=== PATIENT | male | born 1960 | race American Indian/Alaskan Native ===

== ENCOUNTER 2018-01-05 01:17 | Inpatient (IN) | payer MEDICARE ==
[2018-01-05 01:45] LABS: Basophils # (Auto) 0.1 K/mm3 (0.0-0.1); Basophils % (Auto) 0.7 % (0.0-1.8); Eosinophils # (Auto) 0.3 K/mm3 (0.0-0.4); Eosinophils % (Auto) 2.1 % (0.0-4.3); Hematocrit 47.5 % (35.5-45.6); Hemoglobin 16.3 gm/dl (11.8-15.2); Lymphocytes # (Auto) 2.8 K/mm3 (1.2-5.4); Lymphocytes % (Auto) 20.8 % (13.4-35.0); Mean Corpuscular HGB Conc 34 % (32-34); Mean Corpuscular Hemoglobin 30 pg (28-32); Mean Corpuscular Volume 88 fl (84-94); Monocytes % (Auto) 7.6 % (0.0-7.3); Platelet Count 233 K/mm3 (140-440); Red Blood Count 5.38 M/mm3 (3.65-5.03); Red Cell Distribution Width 13.5 % (13.2-15.2)
--- NOTE | 2018-01-05 01:45 | Cat Scan Report ---
FINAL REPORT PROCEDURE: CT HEAD/BRAIN WO CON TECHNIQUE: Computerized tomography of the head was performed without contrast material. HISTORY: ams COMPARISON: No prior studies are available for comparison. FINDINGS: Skull and scalp: Normal. Paranasal sinuses: Normal. Ventricles and subarachnoid spaces: Normal. Cerebrum: No evidence of hemorrhage, acute infarction or mass . Cerebellum and brainstem: No evidence of hemorrhage, acute infarction or mass. Vasculature: Normal. Comments: None. IMPRESSION: There is no evidence of an acute intracranial process.
[2018-01-05 02:02] LABS: Alanine Aminotransferase 14 units/L (7-56); BUN/Creatinine Ratio 5; Blood Urea Nitrogen 4 mg/dL (9-20); Calcium 8.3 mg/dL (8.4-10.2); Hemolysis Index 3
--- NOTE | 2018-01-05 02:24 | Emergency Department Report ---
ED Altered Mental Status HPI - General Chief Complaint: Altered Mental Status Stated Complaint: AMS Time Seen by Provider: 01/05/18 02:10 Source: EMS Mode of arrival: Stretcher Limitations: No Limitations - History of Present Illness Initial Comments: Wheelchair-bound patient with altered mental status says he did not offer his wheelchair earlier does have history of frequent UTIs, no focal neuro deficits, awake and verbal but confused MD Complaint: altered mental status, confusion -: Gradual, unknown Severity: mild, moderate Consistency of Symptoms: waxing and waning, getting worse Context: history of similar presen Associated Symptoms: malaise, foul smelling urine. denies: chest pain, cough, diaphoresis, headaches, loss of appetite, nausea/vomiting, rash, seizure, shortness of breath, syncope, weakness - Related Data Home Medications Medication Instructions Recorded Confirmed Last Taken Baclofen [Lioresal] 40 mg PO QHS 02/22/16 02/22/16 02/21/16 Duloxetine HCl [DULoxetine] 60 mg PO QDAY 02/22/16 02/22/16 02/21/16 Gabapentin [Neurontin] 600 mg PO Q8H 02/22/16 02/22/16 02/21/16 Nitrofurantoin [place]/M-Cryst 100 mg PO Q12HR 02/22/16 02/22/16 02/21/16 [Macrobid CAP] Oxybutynin Chloride [Oxybutynin 10 mg PO QDAY 02/22/16 02/22/16 02/21/16 Chloride ER] traMADol [Ultram] 50 mg PO Q6HR PRN 02/22/16 02/22/16 02/21/16 Allergies Allergy/AdvReac Type Severity Reaction Status Date / Time latex Allergy Unknown Verified 01/05/18 01:19 ED Review of Systems ROS: Stated complaint: AMS Other details as noted in HPI Comment: Unobtainable due to pts medical conditions Constitutional: malaise, weakness Eyes: denies: eye discharge, vision change Respiratory: denies: shortness of breath, SOB with exertion, SOB at rest, stridor Cardiovascular: denies: chest pain, palpitations, dyspnea on exertion, orthopnea , edema, syncope, paroxysmal nocturnal dyspnea Gastrointestinal: denies: diarrhea, constipation, hematemesis, melena, hematochezia Neurological: weakness ED Past Medical Hx - Past Medical History Previous Medical History?: Yes Hx Hypertension: Yes Additional medical history: has fuller catheter. cervical spine injury in 1999 - Surgical History Past Surgical History?: Yes Hx Appendectomy: Yes Additional Surgical History: neck fusion - Social History Smoking Status: Current Every Day Smoker Substance Use Type: Alcohol - Medications Home Medications: Home Medications Medication Instructions Recorded Confirmed Last Taken Type Baclofen [Lioresal] 40 mg PO QHS 02/22/16 02/22/16 02/21/16 History Duloxetine HCl [DULoxetine] 60 mg PO QDAY 02/22/16 02/22/16 02/21/16 History Gabapentin [Neurontin] 600 mg PO Q8H 02/22/16 02/22/16 02/21/16 History Nitrofurantoin [place]/M-Cryst 100 mg PO Q12HR 02/22/16 02/22/16 02/21/16 History [Macrobid CAP] Oxybutynin Chloride [Oxybutynin 10 mg PO QDAY 02/22/16 02/22/16 02/21/16 History Chloride ER] traMADol [Ultram] 50 mg PO Q6HR PRN 02/22/16 02/22/16 02/21/16 History ED Physical Exam - General Limitations: No Limitations General appearance: other (awake and verbal disoriented) - Head Head exam: Present: atraumatic, normocephalic - Eye Eye exam: Present: PERRL, EOMI - ENT ENT exam: Present: normal exam - Neck Neck exam: Absent: tenderness, meningismus - Respiratory Respiratory exam: Present: rhonchi. Absent: stridor, chest wall tenderness, accessory muscle use, decreased breath sounds, prolonged expiratory - Cardiovascular Cardiovascular Exam: Present: regular rate, normal rhythm - GI/Abdominal GI/Abdominal exam: Present: soft. Absent: guarding, rebound, rigid, mass, pulsatile mass - Extremities Exam Extremities exam: Present: other (pain to his left femur no compartment syndromeS) - Back Exam Back exam: Present: normal inspection. Absent: paraspinal tenderness, vertebral tenderness - Neurological Exam Neurological exam: Present: CN II-XII intact, reflexes normal - Skin Skin exam: Absent: cyanosis, diaphoretic, urticaria, vesicles, petechiae, pallor - Level of Consciousness 1a. Level of Consciousness: not alert, arousable - LOC Questions 1b. LOC Questions: answers 1 question correctly - LOC Command 1c. LOC Commands: performs no tasks correctly - Best Gaze 2. Best Gaze: normal - Visual 3. Visual: no visual loss - Facial Palsy 4. Facial Palsy: normal symmetrical movement - Motor Arm 5b. Motor Arm Right: no drift 5a. Motor Arm Left: no drift - Motor Leg 6a. Motor Leg Left: no drift 6b. Motor Leg Right: no drift - Limb Ataxia 7. Limb Ataxia: absent - Sensory 8. Sensory: mild/moderate sensory loss - Best Language 9. Best Language: no aphasia - Dysarthria 10. Dysarthria: mild/moderate dysarthria - Extinction and Inattention 11. Extinction/Inattention: visual/tactile inattention - Scoring Total Score: 7 Stroke Severity: Moderate Stroke ED Course Vital Signs 01/05/18 01/05/18 01/05/18 01:19 01:34 01:35 Temperature 98.1 F Pulse Rate 79 79 Respiratory 18 Rate Blood Pressure 127/78 134/86 Blood Pressure [Left] O2 Sat by Pulse 100 Oximetry 01/05/18 01/05/18 01/05/18 01:46 01:59 02:00 Temperature 99.8 F H Pulse Rate 94 H 92 H 96 H Respiratory 33 H 24 17 Rate Blood Pressure 134/86 109/64 Blood Pressure 134/86 [Left] O2 Sat by Pulse 99 97 96 Oximetry 01/05/18 01/05/18 01/05/18 02:15 02:30 02:45 Temperature Pulse Rate 97 H 96 H 96 H Respiratory 31 H 30 H 27 H Rate Blood Pressure 109/64 116/83 Blood Pressure [Left] O2 Sat by Pulse 98 99 98 Oximetry 01/05/18 01/05/18 01/05/18 03:00 03:16 03:30 Temperature Pulse Rate 97 H 98 H 97 H Respiratory 25 H 14 35 H Rate Blood Pressure 116/83 128/86 128/86 Blood Pressure [Left] O2 Sat by Pulse 99 95 98 Oximetry 01/05/18 01/05/18 01/05/18 03:46 04:00 04:15 Temperature Pulse Rate 96 H 96 H 96 H Respiratory 34 H 33 H 30 H Rate Blood Pressure 149/103 149/103 154/89 Blood Pressure [Left] O2 Sat by Pulse 97 96 95 Oximetry 01/05/18 04:30 Temperature Pulse Rate 94 H Respiratory 27 H Rate Blood Pressure 140/88 Blood Pressure [Left] O2 Sat by Pulse 95 Oximetry - Lab Data Result diagrams: 01/05/18 01:30 01/05/18 01:30 Lab Results 01/05/18 01/05/18 01/05/18 Range/Units 01:30 01:30 01:30 WBC 13.3 H (4.5-11.0) K/mm3 RBC 5.38 H (3.65-5.03) M/mm3 Hgb 16.3 H (11.8-15.2) gm/dl Hct 47.5 H (35.5-45.6) % MCV 88 (84-94) fl MCH 30 (28-32) pg MCHC 34 (32-34) % RDW 13.5 (13.2-15.2) % Plt Count 233 (140-440) K/mm3 Lymph % (Auto) 20.8 (13.4-35.0) % [place] % (Auto) 7.6 H (0.0-7.3) % Eos % (Auto) 2.1 (0.0-4.3) % Baso % (Auto) 0.7 (0.0-1.8) % Lymph # 2.8 (1.2-5.4) K/mm3 [place] # 1.0 H (0.0-0.8) K/mm3 Eos # 0.3 (0.0-0.4) K/mm3 Baso # 0.1 (0.0-0.1) K/mm3 Seg Neutrophils % 68.8 (40.0-70.0) % Seg Neutrophils # 9.2 H (1.8-7.7) K/mm3 Sodium 137 (137-145) mmol/L Potassium 3.1 L (3.6-5.0) mmol/L Chloride 96.8 L (98-107) mmol/L Carbon Dioxide 28 (22-30) mmol/L Anion Gap 15 mmol/L BUN 4 L (9-20) mg/dL Creatinine 0.8 (0.8-1.5) mg/dL Estimated GFR > 60 ml/min BUN/Creatinine Ratio 5 % Glucose 89 (75-100) mg/dL Calcium 8.3 L (8.4-10.2) mg/dL Total Bilirubin 0.50 (0.1-1.2) mg/dL AST 15 (5-40) units/L ALT 14 (7-56) units/L Alkaline Phosphatase 109 (35-129) units/L Troponin T (0.00-0.029) ng/mL Total Protein 7.4 (6.3-8.2) g/dL Albumin 3.0 L (3.9-5) g/dL Albumin/Globulin Ratio 0.7 % TSH 1.990 (0.270-4.200) mlU/mL Urine Color (Yellow) Urine Turbidity (Clear) Urine pH (5.0-7.0) Ur Specific [place] (1.003-1.030) Urine Protein (Negative) mg/dL Urine Glucose (UA) (Negative) mg/dL Urine Ketones (Negative) mg/dL Urine Blood (Negative) Urine Nitrite (Negative) Urine Bilirubin (Negative) Urine Urobilinogen (<2.0) mg/dL Ur Leukocyte Esterase (Negative) Urine WBC (Auto) (0.0-6.0) /HPF Urine RBC (Auto) (0.0-6.0) /HPF U Epithel Cells (Auto) (0-13.0) /HPF Urine Bacteria (Auto) (Negative) /HPF Urine Yeast (Budding) /HPF Urine Opiates Screen Urine Methadone Screen Ur Barbiturates Screen Ur Phencyclidine Scrn Ur Amphetamines Screen U Benzodiazepines Scrn Urine Cocaine Screen U Marijuana (THC) Screen Drugs of Abuse Note Plasma/Serum Alcohol (0-0.07) % 01/05/18 01/05/18 01/05/18 Range/Units 01:30 02:25 03:12 WBC (4.5-11.0) K/mm3 RBC (3.65-5.03) M/mm3 Hgb (11.8-15.2) gm/dl Hct (35.5-45.6) % MCV (84-94) fl MCH (28-32) pg MCHC (32-34) % RDW (13.2-15.2) % Plt Count (140-440) K/mm3 Lymph % (Auto) (13.4-35.0) % [place] % (Auto) (0.0-7.3) % Eos % (Auto) (0.0-4.3) % Baso % (Auto) (0.0-1.8) % Lymph # (1.2-5.4) K/mm3 [place] # (0.0-0.8) K/mm3 Eos # (0.0-0.4) K/mm3 Baso # (0.0-0.1) K/mm3 Seg Neutrophils % (40.0-70.0) % Seg Neutrophils # (1.8-7.7) K/mm3 Sodium (137-145) mmol/L Potassium (3.6-5.0) mmol/L Chloride (98-107) mmol/L Carbon Dioxide (22-30) mmol/L Anion Gap mmol/L BUN (9-20) mg/dL Creatinine (0.8-1.5) mg/dL Estimated GFR ml/min BUN/Creatinine Ratio % Glucose (75-100) mg/dL Calcium (8.4-10.2) mg/dL Total Bilirubin (0.1-1.2) mg/dL AST (5-40) units/L ALT (7-56) units/L Alkaline Phosphatase (35-129) units/L Troponin T < 0.010 (0.00-0.029) ng/mL Total Protein (6.3-8.2) g/dL Albumin (3.9-5) g/dL Albumin/Globulin Ratio % TSH (0.270-4.200) mlU/mL Urine Color (Yellow) Urine Turbidity (Clear) Urine pH (5.0-7.0) Ur Specific [place] (1.003-1.030) Urine Protein (Negative) mg/dL Urine Glucose (UA) (Negative) mg/dL Urine Ketones (Negative) mg/dL Urine Blood (Negative) Urine Nitrite (Negative) Urine Bilirubin (Negative) Urine Urobilinogen (<2.0) mg/dL Ur Leukocyte Esterase (Negative) Urine WBC (Auto) (0.0-6.0) /HPF Urine RBC (Auto) (0.0-6.0) /HPF U Epithel Cells (Auto) (0-13.0) /HPF Urine Bacteria (Auto) (Negative) /HPF Urine Yeast (Budding) /HPF Urine Opiates Screen Presumptive negative Urine Methadone Screen Presumptive negative Ur Barbiturates Screen Presumptive negative Ur Phencyclidine Scrn Presumptive negative Ur Amphetamines Screen Presumptive negative U Benzodiazepines Scrn Presumptive negative Urine Cocaine Screen Presumptive negative U Marijuana (THC) Screen Presumptive negative Drugs of Abuse Note Disclamer Plasma/Serum Alcohol < 0.01 (0-0.07) % // Range/Units 03:12 WBC (4.5-11.0) K/mm3 RBC (3.65-5.03) M/mm3 Hgb (11.8-15.2) gm/dl Hct (35.5-45.6) % MCV (84-94) fl MCH (28-32) pg MCHC (32-34) % RDW (13.2-15.2) % Plt Count (140-440) K/mm3 Lymph % (Auto) (13.4-35.0) % [place] % (Auto) (0.0-7.3) % Eos % (Auto) (0.0-4.3) % Baso % (Auto) (0.0-1.8) % Lymph # (1.2-5.4) K/mm3 [place] # (0.0-0.8) K/mm3 Eos # (0.0-0.4) K/mm3 Baso # (0.0-0.1) K/mm3 Seg Neutrophils % (40.0-70.0) % Seg Neutrophils # (1.8-7.7) K/mm3 Sodium (137-145) mmol/L Potassium (3.6-5.0) mmol/L Chloride (98-107) mmol/L Carbon Dioxide (22-30) mmol/L Anion Gap mmol/L BUN (9-20) mg/dL Creatinine (0.8-1.5) mg/dL Estimated GFR ml/min BUN/Creatinine Ratio % Glucose (75-100) mg/dL Calcium (8.4-10.2) mg/dL Total Bilirubin (0.1-1.2) mg/dL AST (5-40) units/L ALT (7-56) units/L Alkaline Phosphatase (35-129) units/L Troponin T (0.00-0.029) ng/mL Total Protein (6.3-8.2) g/dL Albumin (3.9-5) g/dL Albumin/Globulin Ratio % TSH (0.270-4.200) mlU/mL Urine Color Yellow (Yellow) Urine Turbidity Clear (Clear) Urine pH 6.0 (5.0-7.0) Ur Specific [place] 1.006 (1.003-1.030) Urine Protein <15 mg/dl (Negative) mg/dL Urine Glucose (UA) Neg (Negative) mg/dL Urine Ketones Neg (Negative) mg/dL Urine Blood Mod (Negative) Urine Nitrite Neg (Negative) Urine Bilirubin Neg (Negative) Urine Urobilinogen 2.0 (<2.0) mg/dL Ur Leukocyte Esterase Lg (Negative) Urine WBC (Auto) 28.0 H (0.0-6.0) /HPF Urine RBC (Auto) 46.0 (0.0-6.0) /HPF U Epithel Cells (Auto) < 1.0 (0-13.0) /HPF Urine Bacteria (Auto) 1+ (Negative) /HPF Urine Yeast (Budding) 3+ /HPF Urine Opiates Screen Urine Methadone Screen Ur Barbiturates Screen Ur Phencyclidine Scrn Ur Amphetamines Screen U Benzodiazepines Scrn Urine Cocaine Screen U Marijuana (THC) Screen Drugs of Abuse Note Plasma/Serum Alcohol (0-0.07) % - Radiology Data Radiology results: report reviewed - Medical Decision Making History of old CVA he is wheelchair bound today the symptoms are consistent with altered mental status no evidence of acute CVA on CT or clinical exam. Urine does look like an infection. He'll be cultured and given antibiotics the case was discussed with Dr. Sheets for abdomen for UTI rule out sepsis Critical care attestation.: If time is entered above; I have spent that time in minutes in the direct care of this critically ill patient, excluding procedure time. ED Disposition Clinical Impression: UTI (urinary tract infection), Altered mental status Disposition: [id number] OP ADMIT IP TO THIS HOSP Is pt being admited?: Yes Condition: Stable Referrals: NUNU SOTO MD [Primary Care Provider] - 3-5 Days Time of Disposition: 05:10
--- NOTE | 2018-01-05 02:59 | XRay Report ---
FINAL REPORT PROCEDURE: XR CHEST 1V AP TECHNIQUE: Chest radiograph anteroposterior view. CPT 35465 HISTORY: ams COMPARISON: No prior studies are available for comparison. FINDINGS: Heart: Normal. Mediastinum/Vessels: Normal. Lungs/Pleural space: Slight atelectasis both lower lungs. Bony thorax: No acute osseous abnormality. Life support devices: None. IMPRESSION: Slight atelectasis both lower lungs.
[2018-01-05 03:32] LABS: Bacteria,Urine 1+ /HPF (Negative); Bilirubin,Urine NEG (Negative); Blood,Urine MOD (Negative); Color,Urine Yellow (Yellow); Protein,Urine <15 mg/dL mg/dL (Negative)
[2018-01-05 03:34] LABS: Amphetamine Screen,Urine PRESUMPTIVE NEGATIVE; Benzodiazepines Screen,Urine PRESUMPTIVE NEGATIVE; Cannabinoid Screen,Urine PRESUMPTIVE NEGATIVE; Cocaine Screen,Urine PRESUMPTIVE NEGATIVE; Methadone Screen,Urine PRESUMPTIVE NEGATIVE; Opiate Screen,Urine PRESUMPTIVE NEGATIVE
--- NOTE | 2018-01-05 05:51 | XRay Report ---
FINAL REPORT PROCEDURE: XR FEMUR 2+V LT TECHNIQUE: LEFT femur radiographs, AP and lateral views. HISTORY: pain COMPARISON: No prior studies are available for comparison. FINDINGS: Fracture (s) and/or Dislocation(s): None . Joint space(s): Mild narrowing of the joint spaces. Soft tissues: Normal . Bone mineralization: Normal . Foreign bodies: None . IMPRESSION: No acute fracture or dislocation. Mild arthritis
[2018-01-05] MEDS ORDERED: ZOFRAN IV PRN (06:32)
[2018-01-05] MEDS ORDERED: TYLENOL PO PRN (06:32)
[2018-01-05] MEDS ORDERED: KCL 10MEQ/100ML 10 MEQ/100 ML BAG IV ONE (06:35)
[2018-01-05] MEDS ORDERED: HYOSCYAMINE 0.125 MG PO PRN (06:43)
[2018-01-05] MEDS ORDERED: DITROPAN XL PO PRN (06:43)
[2018-01-05] MEDS ORDERED: AMBIEN PO PRN (06:43)
[2018-01-05] MEDS ORDERED: ULTRAM PO PRN (06:43)
[2018-01-05] MEDS ORDERED: LIORESAL PO PRN (06:43)
[2018-01-05] MEDS ORDERED: NON-FORMULARY (Gabapentin [Neurontin] 600 MG) PO SCH (06:45)
[2018-01-05] MEDS ORDERED: KCL 10 MEQ in NACL 0.9% 100 ML IV ONE (07:15)
[2018-01-05] MEDS ORDERED: LEVSIN SL PO PRN (07:17)
[2018-01-05] MEDS: NEURONTIN PO SCH ×2 (08:00→17:00)
[2018-01-05] MEDS: ROXICODONE PO SCH ×3 (08:00→22:29)
--- NOTE | 2018-01-05 09:12 | History and Physical Report ---
CHIEF COMPLAINT: Change in mental status. HISTORY OF PRESENT ILLNESS: The patient is a 57-year-old male who was noted to be confused at home according to the . The decided to bring the patient to the Emergency Room. There was no history of chest pain, no history of shortness of breath. No history of fever or chills. The patient was evaluated and was found not to have any evidence of stroke by physical exam and CAT scan. However, the patient was found to have a urinary tract infection and was recommended for admission. PAST MEDICAL HISTORY: Pertinent for hypertension. Also, the patient has past medical history of cervical spinal injury and has Mesa catheter in place. PAST SURGICAL HISTORY: Pertinent for neck fusion surgery, appendectomy. FAMILY HISTORY: Noncontributory. SOCIAL HISTORY: The patient smokes cigarettes, drinks alcohol and does not use illicit drugs. MEDICATIONS: The patient is on baclofen 40 mg at bedtime, duloxetine 60 mg daily, gabapentin 600 mg every 8 hours, nitrofurantoin Macrobid 100 mg every 12 hours, oxybutynin chloride extended release 10 mg by mouth daily, tramadol 50 mg by mouth every 6 hours as needed for pain. ALLERGIES: THE PATIENT IS ALLERGIC TO LATEX. REVIEW OF SYSTEMS: CONSTITUTIONAL: There is no fever, no chills, no diaphoresis. HEENT: There is no headache or sore throat. CARDIOVASCULAR: There is no chest pain, orthopnea. RESPIRATORY: There is no shortness of breath or cough. GASTROINTESTINAL: There is no nausea, no vomiting, no abdominal pain, diarrhea, or constipation. NEUROLOGIC: There is confusion and change in mental status. No numbness, no dizziness. MUSCULOSKELETAL: There is no joint pain or swelling. DERMATOLOGICAL: There is no skin rash or itching. GENITOURINARY: There is no dysuria, hematuria, or flank pain. Rest of system review is normal. PHYSICAL EXAMINATION: GENERAL: At the time of exam, the patient was found to be alert, oriented to person, place, and not in acute distress. VITAL SIGNS: Shows temperature of 98.4 degrees Fahrenheit, pulse of 94, respirations 27, blood pressure 140/88, O2 sat of 95% on room air. HEENT: Show pupils to be equal, round, reactive to light and accommodation. Extraocular movements are intact. NECK: Supple with no JVD or carotid bruits. CARDIOVASCULAR: Show normal first and second heart sounds with no gallops or murmurs. RESPIRATORY: Showed good air entry on both sides of the lung with no abnormal breath sounds. GASTROINTESTINAL: Show abdomen to be full, soft, nontender with no organomegaly or rigidity. NEUROLOGIC: Shows no focal deficits. MUSCULOSKELETAL: Show no joint swelling or tenderness. DERMATOLOGIC: Showing no skin rashes. GENITOURINARY: Showing no costovertebral angle tenderness. PERTINENT LABORATORY AND IMAGING STUDIES: The patient has CBC done with elevated white count of 13,300, elevated hemoglobin of 15.3 and elevated hematocrit of 47.5 and normal MCV. CBC differential was unremarkable except for elevated ____. Chemistry shows low potassium level of 3.1 with low chloride of 96.8, unremarkable renal function test. Troponin level came back normal. TSH level was normal. Urinalysis show elevated urine, WBC of 28 and large urine leukocyte esterase with 1+ bacteria. DIAGNOSES: 1. Altered mental status. 2. Urinary tract infection. 3. Hypokalemia. PLAN: The patient will be admitted to medical floor, on telemetry and will have IV potassium chloride 10 mEq x 1 dose and also the patient will have potassium replacement 20 mEq by mouth x1 dose. The patient will be on IV ceftriaxone 1 gram every day and will also be on IV normal saline at 100 mL an hour. The patient will be on Tylenol 650 mg by mouth every 4 hours for fever, headache and Zofran 4 mg every 6 hours as needed for nausea and vomiting. The patient's home medications will be reconciled and started accordingly. JOB# [id number] OCN/NTS
[2018-01-05] MEDS ORDERED: ROCEPHIN/NS 1 GM/50 ML 1 GM/50 ML BAG IV SCH (10:00)
[2018-01-05] MEDS ORDERED: NON-FORMULARY (Duloxetine Hcl [Duloxetine] 60 MG) PO SCH (10:00)
[2018-01-05] MEDS ORDERED: NON-FORMULARY (Lisinopril/Hydrochlorothiazide [Zestoretic 10-12.5 Mg] 1 TAB) PO SCH (10:00)
[2018-01-05] MEDS ORDERED: NON-FORMULARY (Mirabegron [Myrbetriq] 50 MG) PO SCH (10:00)
[2018-01-05] MEDS ORDERED: NEPAFENAC OP SCH (10:00)
[2018-01-05] MEDS ORDERED: BESIFLOXACIN HCL OP SCH (10:00)
[2018-01-05] MEDS ORDERED: SILDENAFIL CITRATE 100 MG PO SCH (10:00)
[2018-01-05] MEDS ORDERED: NON-FORMULARY (Potassium Chloride [Potassium Chloride] 10 MEQ) PO SCH (10:00)
[2018-01-05] MEDS: HEPARIN SUB-Q SCH ×2 (11:02→22:31)
[2018-01-05] MEDS: K-DUR PO SCH (11:56)
[2018-01-05] MEDS: COLACE PO SCH ×2 (11:57→22:29)
[2018-01-05] MEDS: ZESTRIL PO SCH (11:57)
[2018-01-05] MEDS: HCTZ PO SCH (11:58)
[2018-01-05] MEDS: CYMBALTA PO SCH (11:59)
[2018-01-05] MEDS: cefTRIAXone 1 GM in NACL 0.9% 20 ML IV SCH (18:20)
[2018-01-05] MEDS: DIFLUPREDNATE OP SCH (18:23)
[2018-01-05] MEDS: BESIFLOXACIN HCL OP SCH ×2 (19:00→22:31)
--- NOTE | 2018-01-05 19:56 | Progress Note ---
Assessment and Plan Assessment and plan: --Metabolic encephalopathy; secondary to UTI Continue supportive care, antibiotics, follow cultures --Sepsis secondary to urinary tract infection; present on admission, secondary to indwelling Mesa catheter, empiric antibiotics, follow cultures, change catheters if needed --Hypokalemia; replenish per protocol and monitor levels --Hypertension; closely monitor blood pressures, continue current antihypertensives and when necessary medications --History of cervical spine injury/bedbound. Supportive care --Ongoing tobacco use; smoking cessation counseling done, advised nicotine patch as needed --DVT prophylaxis; Lovenox Closely monitor the patient and adjust the management as needed Plan of care reviewed with the patient and family members at the bedside History Interval history: Patient seen and examined medical records reviewed Admitted this morning with altered level of consciousness and possible UTI At the time of my evaluation patient is alert awake oriented 3 Vital signs reviewed No new complaints Hospitalist Physical - Constitutional Vitals: Temp Pulse Resp BP Pulse Ox 98.0 F 86 20 123/74 95 01/05/18 15:26 01/05/18 15:26 01/05/18 15:26 01/05/18 15:26 01/05/18 15:26 General appearance: Present: no acute distress, well-nourished, obese (obese) - EENT Eyes: Present: PERRL, EOM intact - Neck Neck: Present: supple, normal ROM - Respiratory Respiratory effort: normal Respiratory: negative: rales, rhonchi, wheezing - Cardiovascular Rhythm: regular Heart Sounds: Present: S1 & S2 - Extremities Extremities: normal temperature Extremity abnormal: edema - Abdominal General gastrointestinal: soft, non-tender, non-distended, normal bowel sounds - Integumentary Integumentary: Present: clear, warm - Psychiatric Psychiatric: appropriate mood/affect, cooperative - Neurologic Neurologic: other (residual weakness) Results - Labs CBC & Chem 7: 01/05/18 01:30 01/05/18 01:30 Labs: Laboratory Last Values WBC 13.3 K/mm3 (4.5-11.0) H 01/05/18 01:30 RBC 5.38 M/mm3 (3.65-5.03) H 01/05/18 01:30 Hgb 16.3 gm/dl (11.8-15.2) H 01/05/18 01:30 Hct 47.5 % (35.5-45.6) H 01/05/18 01:30 MCV 88 fl (84-94) 01/05/18 01:30 MCH 30 pg (28-32) 01/05/18 01:30 MCHC 34 % (32-34) 01/05/18 01:30 RDW 13.5 % (13.2-15.2) 01/05/18 01:30 Plt Count 233 K/mm3 (140-440) 01/05/18 01:30 Lymph % (Auto) 20.8 % (13.4-35.0) 01/05/18 01:30 [place] % (Auto) 7.6 % (0.0-7.3) H 01/05/18 01:30 Eos % (Auto) 2.1 % (0.0-4.3) 01/05/18 01:30 Baso % (Auto) 0.7 % (0.0-1.8) 01/05/18 01:30 Lymph # 2.8 K/mm3 (1.2-5.4) 01/05/18 01:30 [place] # 1.0 K/mm3 (0.0-0.8) H 01/05/18 01:30 Eos # 0.3 K/mm3 (0.0-0.4) 01/05/18 01:30 Baso # 0.1 K/mm3 (0.0-0.1) 01/05/18 01:30 Seg Neutrophils % 68.8 % (40.0-70.0) 01/05/18 01:30 Seg Neutrophils # 9.2 K/mm3 (1.8-7.7) H 01/05/18 01:30 POC ABG pH 7.434 (7.35-7.45) 01/05/18 19:30 POC ABG pCO2 43.6 (35-45) 01/05/18 19:30 POC ABG pO2 38 (80-105) L 01/05/18 19:30 POC ABG HCO3 29.2 01/05/18 19:30 POC ABG Total CO2 31 01/05/18 19:30 POC ABG O2 Sat 73 01/05/18 19:30 POC ABG Base Excess 5 01/05/18 19:30 FiO2 21 % 01/05/18 19:30 Sodium 137 mmol/L (137-145) 01/05/18 01:30 Potassium 3.1 mmol/L (3.6-5.0) L 01/05/18 01:30 Chloride 96.8 mmol/L (98-107) L 01/05/18 01:30 Carbon Dioxide 28 mmol/L (22-30) 01/05/18 01:30 Anion Gap 15 mmol/L 01/05/18 01:30 BUN 4 mg/dL (9-20) L 01/05/18 01:30 Creatinine 0.8 mg/dL (0.8-1.5) 01/05/18 01:30 Estimated GFR > 60 ml/min 01/05/18 01:30 BUN/Creatinine Ratio 5 % 01/05/18 01:30 Glucose 89 mg/dL (75-100) 01/05/18 01:30 Calcium 8.3 mg/dL (8.4-10.2) L 01/05/18 01:30 Total Bilirubin 0.50 mg/dL (0.1-1.2) 01/05/18 01:30 AST 15 units/L (5-40) 01/05/18 01:30 ALT 14 units/L (7-56) 01/05/18 01:30 Alkaline Phosphatase 109 units/L (35-129) 01/05/18 01:30 Troponin T < 0.010 ng/mL (0.00-0.029) 01/05/18 02:25 Total Protein 7.4 g/dL (6.3-8.2) 01/05/18 01:30 Albumin 3.0 g/dL (3.9-5) L 01/05/18 01:30 Albumin/Globulin Ratio 0.7 % 01/05/18 01:30 TSH 1.990 mlU/mL (0.270-4.200) 01/05/18 01:30 Urine Color Yellow (Yellow) 01/05/18 03:12 Urine Turbidity Clear (Clear) 01/05/18 03:12 Urine pH 6.0 (5.0-7.0) 01/05/18 03:12 Ur Specific [place] 1.006 (1.003-1.030) 01/05/18 03:12 Urine Protein <15 mg/dl mg/dL (Negative) 01/05/18 03:12 Urine Glucose (UA) Neg mg/dL (Negative) 01/05/18 03:12 Urine Ketones Neg mg/dL (Negative) 01/05/18 03:12 Urine Blood Mod (Negative) 01/05/18 03:12 Urine Nitrite Neg (Negative) 01/05/18 03:12 Urine Bilirubin Neg (Negative) 01/05/18 03:12 Urine Urobilinogen 2.0 mg/dL (<2.0) 01/05/18 03:12 Ur Leukocyte Esterase Lg (Negative) 01/05/18 03:12 Urine WBC (Auto) 28.0 /HPF (0.0-6.0) H 01/05/18 03:12 Urine RBC (Auto) 46.0 /HPF (0.0-6.0) 01/05/18 03:12 U Epithel Cells (Auto) < 1.0 /HPF (0-13.0) 01/05/18 03:12 Urine Bacteria (Auto) 1+ /HPF (Negative) 01/05/18 03:12 Urine Yeast (Budding) 3+ /HPF 01/05/18 03:12 Urine Opiates Screen Presumptive negative 01/05/18 03:12 Urine Methadone Screen Presumptive negative 01/05/18 03:12 Ur Barbiturates Screen Presumptive negative 01/05/18 03:12 Ur Phencyclidine Scrn Presumptive negative 01/05/18 03:12 Ur Amphetamines Screen Presumptive negative 01/05/18 03:12 U Benzodiazepines Scrn Presumptive negative 01/05/18 03:12 Urine Cocaine Screen Presumptive negative 01/05/18 03:12 U Marijuana (THC) Screen Presumptive negative 01/05/18 03:12 Drugs of Abuse Note Disclamer 01/05/18 03:12 Plasma/Serum Alcohol < 0.01 % (0-0.07) 01/05/18 01:30
[2018-01-05] MEDS: HABITROL TD SCH (20:32)
[2018-01-05] MEDS: NACL 0.9% 1000 ML 1,000 ML IV SCH (22:29)
[2018-01-06] MEDS: NEURONTIN PO SCH ×4 (03:52→18:49)
[2018-01-06 08:29] LABS: Basophils # (Auto) 0.1 K/mm3 (0.0-0.1); Basophils % (Auto) 0.7 % (0.0-1.8); Eosinophils # (Auto) 0.3 K/mm3 (0.0-0.4); Eosinophils % (Auto) 2.7 % (0.0-4.3); Hematocrit 46.5 % (35.5-45.6); Hemoglobin 16.1 gm/dl (11.8-15.2); Lymphocytes # (Auto) 2.7 K/mm3 (1.2-5.4); Lymphocytes % (Auto) 25.4 % (13.4-35.0); Mean Corpuscular HGB Conc 35 % (32-34); Mean Corpuscular Hemoglobin 30 pg (28-32); Mean Corpuscular Volume 88 fl (84-94); Monocytes % (Auto) 9.7 % (0.0-7.3); Platelet Count 168 K/mm3 (140-440); Red Blood Count 5.31 M/mm3 (3.65-5.03); Red Cell Distribution Width 13.7 % (13.2-15.2)
[2018-01-06] MEDS: ROXICODONE PO SCH ×3 (08:47→20:22)
[2018-01-06 08:50] LABS: BUN/Creatinine Ratio 6; Blood Urea Nitrogen 4 mg/dL (9-20); Calcium 8.6 mg/dL (8.4-10.2); Hemolysis Index 10
[2018-01-06] MEDS: HCTZ PO SCH (10:30)
[2018-01-06] MEDS: CYMBALTA PO SCH (10:31)
[2018-01-06] MEDS: ZESTRIL PO SCH (10:31)
[2018-01-06] MEDS: COLACE PO SCH ×2 (10:31→22:13)
[2018-01-06] MEDS: HABITROL TD SCH (10:31)
[2018-01-06] MEDS: K-DUR PO SCH (10:31)
[2018-01-06] MEDS: NEPAFENAC OP SCH (10:32)
[2018-01-06] MEDS: DIFLUPREDNATE OP SCH (10:33)
[2018-01-06] MEDS: BESIFLOXACIN HCL OP SCH ×4 (10:33→22:13)
[2018-01-06] MEDS ORDERED: K-DUR PO ONE ×2 (10:43→15:00)
[2018-01-06] MEDS: HEPARIN SUB-Q SCH ×2 (11:45→22:15)
[2018-01-06] MEDS: NACL 0.9% 1000 ML 1,000 ML IV SCH (11:46)
[2018-01-06] MEDS: cefTRIAXone 1 GM in NACL 0.9% 20 ML IV SCH (14:39)
--- NOTE | 2018-01-06 17:01 | Progress Note ---
Assessment and Plan Assessment and plan: --Sepsis secondary to urinary tract infection; present on admission, secondary to indwelling Mesa catheter,empiric antibiotics, follow cultures, change catheters if needed --Metabolic encephalopathy; secondary to UTI Continue supportive care, antibiotics,cultures negative to date --Hypokalemia; replenish per protocol and monitor levels --Hypertension; closely monitor blood pressures, continue current antihypertensives and when necessary medications --History of cervical spine injury/bedbound. Supportive care --Ongoing tobacco use; smoking cessation counseling done, advised nicotine patch as needed --DVT prophylaxis; Lovenox Closely monitor the patient and adjust the management as needed DC planning. Case management when medically stable Plan of care is reviewed with the patient and the family member at the bedside History Interval history: Patient seen and examined medical records reviewed Patient feels better afebrile, no new complaints Patient denies chest pain or shortness of breath Denies nausea vomiting Cultures are negative to date Alert awake oriented 3 not in acute distress Vital signs reviewed Hospitalist Physical - Constitutional Vitals: Temp Pulse Resp BP Pulse Ox 98.3 F 74 20 102/69 98 01/06/18 16:52 01/06/18 16:52 01/06/18 16:52 01/06/18 16:52 01/06/18 16:52 General appearance: Present: no acute distress, well-nourished, obese (obese) - EENT Eyes: Present: PERRL, EOM intact - Neck Neck: Present: supple, normal ROM - Respiratory Respiratory effort: normal Respiratory: bilateral: diminished, negative: rales, rhonchi, wheezing - Cardiovascular Rhythm: regular Heart Sounds: Present: S1 & S2 - Extremities Extremities: normal temperature Extremity abnormal: edema - Abdominal General gastrointestinal: soft, non-tender, non-distended, normal bowel sounds - Integumentary Integumentary: Present: clear, warm - Psychiatric Psychiatric: appropriate mood/affect, cooperative - Neurologic Neurologic: other (residual deficit) Results - Labs CBC & Chem 7: 01/06/18 07:45 01/06/18 07:45 Labs: Laboratory Last Values WBC 10.7 K/mm3 (4.5-11.0) 01/06/18 07:45 RBC 5.31 M/mm3 (3.65-5.03) H 01/06/18 07:45 Hgb 16.1 gm/dl (11.8-15.2) H 01/06/18 07:45 Hct 46.5 % (35.5-45.6) H 01/06/18 07:45 MCV 88 fl (84-94) 01/06/18 07:45 MCH 30 pg (28-32) 01/06/18 07:45 MCHC 35 % (32-34) H 01/06/18 07:45 RDW 13.7 % (13.2-15.2) 01/06/18 07:45 Plt Count 168 K/mm3 (140-440) 01/06/18 07:45 Lymph % (Auto) 25.4 % (13.4-35.0) 01/06/18 07:45 [place] % (Auto) 9.7 % (0.0-7.3) H 01/06/18 07:45 Eos % (Auto) 2.7 % (0.0-4.3) 01/06/18 07:45 Baso % (Auto) 0.7 % (0.0-1.8) 01/06/18 07:45 Lymph # 2.7 K/mm3 (1.2-5.4) 01/06/18 07:45 [place] # 1.0 K/mm3 (0.0-0.8) H 01/06/18 07:45 Eos # 0.3 K/mm3 (0.0-0.4) 01/06/18 07:45 Baso # 0.1 K/mm3 (0.0-0.1) 01/06/18 07:45 Seg Neutrophils % 61.5 % (40.0-70.0) 01/06/18 07:45 Seg Neutrophils # 6.6 K/mm3 (1.8-7.7) 01/06/18 07:45 POC ABG pH 7.434 (7.35-7.45) 01/05/18 19:30 POC ABG pCO2 43.6 (35-45) 01/05/18 19:30 POC ABG pO2 38 (80-105) L 01/05/18 19:30 POC ABG HCO3 29.2 01/05/18 19:30 POC ABG Total CO2 31 01/05/18 19:30 POC ABG O2 Sat 73 01/05/18 19:30 POC ABG Base Excess 5 01/05/18 19:30 FiO2 21 % 01/05/18 19:30 Sodium 138 mmol/L (137-145) 01/06/18 07:45 Potassium 3.2 mmol/L (3.6-5.0) L 01/06/18 07:45 Chloride 99.1 mmol/L (98-107) 01/06/18 07:45 Carbon Dioxide 26 mmol/L (22-30) 01/06/18 07:45 Anion Gap 16 mmol/L 01/06/18 07:45 BUN 4 mg/dL (9-20) L 01/06/18 07:45 Creatinine 0.7 mg/dL (0.8-1.5) L 01/06/18 07:45 Estimated GFR > 60 ml/min 01/06/18 07:45 BUN/Creatinine Ratio 6 % 01/06/18 07:45 Glucose 85 mg/dL (75-100) 01/06/18 07:45 Calcium 8.6 mg/dL (8.4-10.2) 01/06/18 07:45 Total Bilirubin 0.50 mg/dL (0.1-1.2) 01/05/18 01:30 AST 15 units/L (5-40) 01/05/18 01:30 ALT 14 units/L (7-56) 01/05/18 01:30 Alkaline Phosphatase 109 units/L (35-129) 01/05/18 01:30 Troponin T < 0.010 ng/mL (0.00-0.029) 01/05/18 02:25 Total Protein 7.4 g/dL (6.3-8.2) 01/05/18 01:30 Albumin 3.0 g/dL (3.9-5) L 01/05/18 01:30 Albumin/Globulin Ratio 0.7 % 01/05/18 01:30 TSH 1.990 mlU/mL (0.270-4.200) 01/05/18 01:30 Urine Color Yellow (Yellow) 01/05/18 03:12 Urine Turbidity Clear (Clear) 01/05/18 03:12 Urine pH 6.0 (5.0-7.0) 01/05/18 03:12 Ur Specific Dawn 1.006 (1.003-1.030) 01/05/18 03:12 Urine Protein <15 mg/dl mg/dL (Negative) 01/05/18 03:12 Urine Glucose (UA) Neg mg/dL (Negative) 01/05/18 03:12 Urine Ketones Neg mg/dL (Negative) 01/05/18 03:12 Urine Blood Mod (Negative) 01/05/18 03:12 Urine Nitrite Neg (Negative) 01/05/18 03:12 Urine Bilirubin Neg (Negative) 01/05/18 03:12 Urine Urobilinogen 2.0 mg/dL (<2.0) 01/05/18 03:12 Ur Leukocyte Esterase Lg (Negative) 01/05/18 03:12 Urine WBC (Auto) 28.0 /HPF (0.0-6.0) H 01/05/18 03:12 Urine RBC (Auto) 46.0 /HPF (0.0-6.0) 01/05/18 03:12 U Epithel Cells (Auto) < 1.0 /HPF (0-13.0) 01/05/18 03:12 Urine Bacteria (Auto) 1+ /HPF (Negative) 01/05/18 03:12 Urine Yeast (Budding) 3+ /HPF 01/05/18 03:12 Urine Opiates Screen Presumptive negative 01/05/18 03:12 Urine Methadone Screen Presumptive negative 01/05/18 03:12 Ur Barbiturates Screen Presumptive negative 01/05/18 03:12 Ur Phencyclidine Scrn Presumptive negative 01/05/18 03:12 Ur Amphetamines Screen Presumptive negative 01/05/18 03:12 U Benzodiazepines Scrn Presumptive negative 01/05/18 03:12 Urine Cocaine Screen Presumptive negative 01/05/18 03:12 U Marijuana (THC) Screen Presumptive negative 01/05/18 03:12 Drugs of Abuse Note Disclamer 01/05/18 03:12 Plasma/Serum Alcohol < 0.01 % (0-0.07) 01/05/18 01:30
[2018-01-07] MEDS: NACL 0.9% 1000 ML 1,000 ML IV SCH (00:15)
[2018-01-07] MEDS: NEURONTIN PO SCH ×2 (08:05)
[2018-01-07] MEDS: COLACE PO SCH (09:25)
[2018-01-07] MEDS: ZESTRIL PO SCH (09:25)
[2018-01-07] MEDS: HCTZ PO SCH (09:25)
[2018-01-07] MEDS: CYMBALTA PO SCH (09:26)
[2018-01-07] MEDS: HEPARIN SUB-Q SCH (09:26)
[2018-01-07] MEDS: ROXICODONE PO SCH ×2 (09:26→14:29)
[2018-01-07] MEDS: K-DUR PO SCH (09:27)
[2018-01-07] MEDS: HABITROL TD SCH (09:27)
[2018-01-07] MEDS: DIFLUPREDNATE OP SCH (09:28)
[2018-01-07] MEDS: BESIFLOXACIN HCL OP SCH ×2 (09:28→14:24)
[2018-01-07] MEDS: NEPAFENAC OP SCH (09:29)
[2018-01-07] MEDS ORDERED: K-DUR PO ONE (10:49)
[2018-01-07] MEDS ORDERED: APRESOLINE IV ONE (10:55)
[2018-01-07] MEDS ORDERED: MILK OF MAGNESIA PO ONE (12:25)
--- NOTE | 2018-01-07 12:34 | Discharge Summary ---
Providers - Providers Date of Admission: 01/05/18 06:27 Date of discharge: 01/07/18 Attending physician: CINDY JOHNS Primary care physician: NUNU SOTO Hospitalization Reason for admission: altered level of consciousness Condition: Stable Pertinent studies: CT head without contrast; no acute abnormality Chest x-ray; basilar clip this is X-ray femur; arthritis changes Hospital course: 57-year-old obese male patient with significant history of cervical spine injury bedbound With indwelling Mesa catheter Was admitted through emergency room with altered level of consciousness/ metabolic encephalopathy Noted to be in acute urinary tract infection Patient was symptomatically managed, placed on empiric antibiotics, and a slight imbalances were corrected Patient's altered level of consciousness completely resolved back to baseline Today's comfortably in bed no new complaints Vital signs reviewed [id number] evaluation physical examination prior to discharge is unremarkable The patient is hemodynamically and clinically stable for discharge with home health Discharge diagnosis and management; --Sepsis secondary to urinary tract infection; present on admission, secondary to indwelling Mesa catheter, received Levaquin, significant improvement Patient will change catheters frequently per home health --Metabolic encephalopathy; secondary to UTI, resolved back to baseline --Hypokalemia; corrected --Hypertension; controlled with antihypertensives --Constipation; relieved by stool softeners and Fleet enema --History of cervical spine injury/bedbound. Supportive care --Ongoing tobacco use; smoking cessation counseling done, advised nicotine patch as needed Disposition: DC/[place]-06 HOME UNDER HOME HL Time spent for discharge: 32 Core Measure Documentation - Palliative Care Palliative Care/ Comfort Measures: Not Applicable - Core Measures Any of the following diagnoses?: none Exam - Constitutional Vitals: Temp Pulse Resp BP Pulse Ox 100.0 F H 96 H 20 186/106 97 01/07/18 08:37 01/07/18 08:38 01/07/18 08:37 01/07/18 08:38 01/07/18 08:38 General appearance: Present: no acute distress, well-nourished - EENT Eyes: Present: PERRL, EOM intact - Neck Neck: Present: supple, normal ROM - Respiratory Respiratory effort: normal Respiratory: negative: rales, rhonchi, wheezing - Cardiovascular Rhythm: regular Heart Sounds: Present: S1 & S2 - Extremities Extremities: no ischemia, No edema - Abdominal General gastrointestinal: Present: soft, non-tender, non-distended, normal bowel sounds - Integumentary Integumentary: Present: clear, warm - Musculoskeletal Musculoskeletal: generalized weakness - Psychiatric Psychiatric: appropriate mood/affect, cooperative - Neurologic Neurologic: other (residual weakness) Plan Activity: advance as tolerated, fall precautions Diet: low salt Special Instructions: physical therapy Additional Instructions: Fall precautions. Change Mesa catheter per schedule. Plenty of oral fluids, green leafy vegetables and high-fiber diet for constipation Follow up with: NUNU SOTO MD [Primary Care Provider] - 3-5 Days Prescriptions: hydrALAZINE [Apresoline TAB] 10 mg PO Q8H #90 tablet Levofloxacin [Levaquin] 750 mg PO QDAY #7 tablet
[2018-01-07] MEDS ORDERED: FLEET PR ONE (14:45)
[2018-01-07] MEDS: cefTRIAXone 1 GM in NACL 0.9% 20 ML IV SCH (16:25)
[2018-01-07 18:09] VITALS: BP 157/99
== END 2018-01-07 18:00 | disposition home health service (06) | DRG 698 ==
LOC: ED 01:17 → SUATTDRO 01:17 → 4A 06:27
PROVIDERS: ADMIT Internal Medicine; ATTEND Internal Medicine
DX: T83.518A Infection and inflammatory reaction due to other urinary catheter, initial encounter (principal); A41.9 Sepsis, unspecified organism; G93.41 Metabolic encephalopathy; N39.0 Urinary tract infection, site not specified; F17.200 Nicotine dependence, unspecified, uncomplicated; Y83.8 Other surgical procedures as the cause of abnormal reaction of the patient, or of later complication, without mention of misadventure at the time of the procedure; E87.6 Hypokalemia; Z91.040 Latex allergy status; Z74.01 Bed confinement status; Z71.6 Tobacco abuse counseling; Y92.89 Other specified places as the place of occurrence of the external cause
CPT/HCPCS: 36415; 70450; 71045; 80048; 80053; 80307; 80320; 81001; 82803; 84443; 84484; 85025; 87040; 87086; 87106; 93005; 93010; 96374; G0480; J0360; J0696; J1644; J3480; J7030

== ENCOUNTER 2018-02-08 15:11 | Inpatient (IN) | payer MEDICARE ==
--- NOTE | 2018-02-08 15:15 | Emergency Department Report ---
- General Stated complaint: POSS STROKE Time Seen by Provider: 02/08/18 15:14 Source: patient, EMS Limitations: Physical Limitation - History of Present Illness Initial comments: Patient is a 57-year-old male that presents emergency room with complaints of difficulty speaking, right sided facial droop and right-sided weakness. Patient states that also started 30 minutes prior to arrival to the ER via EMS. Last known well time is 2:45 PM today Complaint: focal weakness -: Sudden Location: RUE, RLE Severity: severe Consistency: constant Improves with: none Worsens with: none Associated Symptoms: denies other symptoms, confusion. denies: chest pain, dark stools, diaphoresis, dysuria, easy bruising, fever/chills, headaches, loss of appetite, nausea/vomiting, myalgias, rash, shortness of breath, syncope - Related Data Home Medications Medication Instructions Recorded Confirmed Last Taken Besifloxacin HCl [Besivance 0.6%] 1 drop OP QID 01/05/18 02/08/18 Unknown Difluprednate [Durezol 0.05%] 1 drop OP QID 01/05/18 02/08/18 Unknown Hyoscyamine (Nf) [Hyoscyamine 0.125 mg PO Q4H PRN 01/05/18 02/08/18 Unknown Sulfate (Nf)] Lisinopril/Hydrochlorothiazide 1 tab PO QDAY 01/05/18 02/08/18 Unknown [Zestoretic 10-12.5 mg] Mirabegron [Myrbetriq] 50 mg PO QDAY 01/05/18 02/08/18 Unknown Nepafenac [Ilevro 0.3%] 1 drop OP QDAY 01/05/18 02/08/18 Unknown Oxycodone HCl [Roxicodone] 5 mg PO TID 01/05/18 02/08/18 Unknown Potassium Chloride 10 meq PO QDAY 01/05/18 02/08/18 Unknown Sildenafil Citrate [Viagra] 100 mg PO QDAY 01/05/18 02/08/18 Unknown Zolpidem [Ambien] 5 mg PO QHS PRN 01/05/18 02/08/18 Unknown Previous Rx's Medication Instructions Recorded Last Taken Type Levofloxacin [Levaquin] 750 mg PO QDAY #7 tablet 01/07/18 Unknown Rx hydrALAZINE [Apresoline TAB] 10 mg PO Q8H #90 tablet 01/07/18 Unknown Rx Allergies Allergy/AdvReac Type Severity Reaction Status Date / Time latex Allergy Unknown Verified 01/05/18 01:19 ED Review of Systems ROS: Stated complaint: POSS STROKE Other details as noted in HPI Constitutional: weakness Eyes: denies: eye pain, eye discharge, vision change ENT: denies: ear pain, throat pain Respiratory: denies: cough, shortness of breath, wheezing Cardiovascular: denies: chest pain, palpitations Endocrine: no symptoms reported Gastrointestinal: denies: abdominal pain, nausea, diarrhea Genitourinary: denies: urgency, dysuria Musculoskeletal: denies: back pain, joint swelling, arthralgia Skin: denies: rash, lesions Neurological: weakness, numbness, paresthesias, abnormal gait Psychiatric: denies: anxiety, depression Hematological/Lymphatic: denies: easy bleeding, easy bruising ED Past Medical Hx - Past Medical History Previous Medical History?: Yes Hx Hypertension: Yes Hx HIV: No Additional medical history: has fuller catheter. cervical spine injury in 1999 - Surgical History Past Surgical History?: Yes Hx Appendectomy: Yes Additional Surgical History: neck fusion - Family History Family history: hypertension - Social History Smoking Status: Current Every Day Smoker Substance Use Type: None - Medications Home Medications: Home Medications Medication Instructions Recorded Confirmed Last Taken Type Besifloxacin HCl [Besivance 0.6%] 1 drop OP QID 01/05/18 02/08/18 Unknown History Difluprednate [Durezol 0.05%] 1 drop OP QID 01/05/18 02/08/18 Unknown History Hyoscyamine (Nf) [Hyoscyamine 0.125 mg PO Q4H PRN 01/05/18 02/08/18 Unknown History Sulfate (Nf)] Lisinopril/Hydrochlorothiazide 1 tab PO QDAY 01/05/18 02/08/18 Unknown History [Zestoretic 10-12.5 mg] Mirabegron [Myrbetriq] 50 mg PO QDAY 01/05/18 02/08/18 Unknown History Nepafenac [Ilevro 0.3%] 1 drop OP QDAY 01/05/18 02/08/18 Unknown History Oxycodone HCl [Roxicodone] 5 mg PO TID 01/05/18 02/08/18 Unknown History Potassium Chloride 10 meq PO QDAY 01/05/18 02/08/18 Unknown History Sildenafil Citrate [Viagra] 100 mg PO QDAY 01/05/18 02/08/18 Unknown History Zolpidem [Ambien] 5 mg PO QHS PRN 01/05/18 02/08/18 Unknown History Levofloxacin [Levaquin] 750 mg PO QDAY #7 tablet 01/07/18 02/08/18 Unknown Rx hydrALAZINE [Apresoline TAB] 10 mg PO Q8H #90 tablet 01/07/18 02/08/18 Unknown Rx ED Physical Exam - General General appearance: alert, in no apparent distress - Head Head exam: Present: atraumatic, normocephalic - Eye Eye exam: Present: normal appearance - ENT ENT exam: Present: mucous membranes moist - Neck Neck exam: Present: normal inspection - Respiratory Respiratory exam: Present: normal lung sounds bilaterally. Absent: respiratory distress - Cardiovascular Cardiovascular Exam: Present: regular rate, normal rhythm. Absent: systolic murmur, diastolic murmur, rubs, gallop - GI/Abdominal GI/Abdominal exam: Present: soft, normal bowel sounds - Rectal Rectal exam: Present: deferred - Extremities Exam Extremities exam: Present: normal inspection - Back Exam Back exam: Present: normal inspection - Neurological Exam Neurological exam: Present: alert, oriented X3 - Psychiatric Psychiatric exam: Present: normal affect, normal mood - Skin Skin exam: Present: warm, dry, intact, normal color. Absent: rash - Assessment Assessment Interval: Baseline - Level of Consciousness 1a. Level of Consciousness: alert - LOC Questions 1b. LOC Questions: answers correctly - LOC Command 1c. LOC Commands: performs tasks correctly - Best Gaze 2. Best Gaze: normal - Visual 3. Visual: no visual loss - Facial Palsy 4. Facial Palsy: minor paralysis - Motor Arm 5b. Motor Arm Right: drift 5a. Motor Arm Left: no drift - Motor Leg 6a. Motor Leg Left: no gravity effort 6b. Motor Leg Right: no gravity effort - Limb Ataxia 7. Limb Ataxia: present 1 limb - Sensory 8. Sensory: normal - Best Language 9. Best Language: mild/moderate aphasia - Dysarthria 10. Dysarthria: mild/moderate dysarthria - Extinction and Inattention 11. Extinction/Inattention: no abnormality - Scoring Total Score: 11 Stroke Severity: Moderate Stroke ED Course Vital Signs 02/08/18 02/08/18 02/08/18 15:46 16:08 16:15 Temperature 98 F Pulse Rate 74 74 81 Respiratory 18 16 20 Rate Blood Pressure 150/93 150/92 Blood Pressure 160/94 [Left] O2 Sat by Pulse 92 96 88 Oximetry 02/08/18 02/08/18 02/08/18 16:30 16:46 17:00 Temperature Pulse Rate 79 82 76 Respiratory 19 18 22 Rate Blood Pressure 150/90 142/80 136/81 Blood Pressure [Left] O2 Sat by Pulse 87 91 92 Oximetry 02/08/18 02/08/18 02/08/18 17:08 17:16 17:28 Temperature Pulse Rate 77 79 75 Respiratory 22 16 Rate Blood Pressure 136/81 Blood Pressure 138/89 [Left] O2 Sat by Pulse 97 97 Oximetry 02/08/18 02/08/18 02/08/18 17:30 17:43 17:46 Temperature Pulse Rate 75 86 72 Respiratory 18 16 18 Rate Blood Pressure 148/86 148/86 Blood Pressure 148/86 [Left] O2 Sat by Pulse 96 96 97 Oximetry 02/08/18 02/08/18 02/08/18 17:47 17:58 18:00 Temperature Pulse Rate 75 72 71 Respiratory 16 16 17 Rate Blood Pressure 128/74 Blood Pressure 148/86 128/84 [Left] O2 Sat by Pulse 97 97 95 Oximetry 02/08/18 02/08/18 02/08/18 18:13 18:16 18:28 Temperature Pulse Rate 75 76 84 Respiratory 16 20 16 Rate Blood Pressure 128/74 Blood Pressure 128/84 128/74 [Left] O2 Sat by Pulse 97 97 96 Oximetry 02/08/18 02/08/18 02/08/18 18:30 18:46 19:00 Temperature Pulse Rate 71 68 66 Respiratory 19 17 18 Rate Blood Pressure 152/92 152/92 156/86 Blood Pressure [Left] O2 Sat by Pulse 96 95 96 Oximetry 02/08/18 02/08/18 02/08/18 19:16 19:30 19:46 Temperature Pulse Rate 70 74 72 Respiratory 17 17 17 Rate Blood Pressure 156/86 150/85 150/85 Blood Pressure [Left] O2 Sat by Pulse 95 95 96 Oximetry - Reevaluation(s) Reevaluation #1: Examination sent to CT and code stroke order 02/08/18 15:15 Reevaluation #2: No acute findings on CT of head except for sinusitis. Radiologist called with results. 02/08/18 15:41 Reevaluation #3: tel - neuro initiated. 02/08/18 16:03 Reevaluation #4: Neurologist recommends tPA. TPA order placed. Hospitalist consulted for admission. Hospitalist agreed to take the patient. 02/08/18 16:49 ED Medical Decision Making - Lab Data Result diagrams: 02/08/18 15:35 02/08/18 15:35 - EKG Data -: EKG Interpreted by Me EKG shows normal: sinus rhythm, axis (left axis), intervals (prolonged TX interval), QRS complexes, ST-T waves Rate: normal - Radiology Data Radiology results: report reviewed - Differential Diagnosis hydration, CVA, hyperglycemia. Hypoglycemia. Hypertension Critical Care Time: Yes Critical care attestation.: If time is entered above; I have spent that time in minutes in the direct care of this critically ill patient, excluding procedure time. Critical Care Time: 45 minutes spent for critical care time ED Disposition Clinical Impression: Right sided weakness, Facial droop, Slurred speech CVA (cerebral vascular accident) Qualifiers: Precerebral and cerebral artery: middle cerebral artery Laterality of affected vessel: left Disposition: DC-09 OP ADMIT IP TO THIS HOSP Is pt being admited?: Yes Does the pt Need Aspirin: No Condition: Critical Time of Disposition: 16:50
--- NOTE | 2018-02-08 15:42 | Cat Scan Report ---
HEAD CT WITHOUT CONTRAST INDICATION: Neurologic deficits less than 6 hours or symptoms present upon awakening. 98N. COMPARISON: 01/05/2018 FINDINGS: Noncontrast head CT demonstrates normal ventricles and sulci without acute or recent infarct, hemorrhage, mass effect or midline shift. No abnormal extra-axial fluid collections. Posterior fossa structures and basilar cisterns within normal limits. Mild ethmoid sinusitis, right more than left posteriorly. Mild right sphenoid sinus mucosal thickening medially is also new. Grossly clear remainder imaged paranasal sinuses and temporal bone/mastoid air cells, though mastoid tips not well pneumatized. Nasal septal deviation. Intact calvarium and scalp. Numerous missing teeth. Cervical spondylosis and posterior fusion hardware. CONCLUSION: No acute intracranial CT abnormality with mild sinusitis noted, as above. MRI is more sensitive for detection of acute infarct and may be useful for further evaluation in the setting of a focal neurologic deficit. I phoned the above results to Dr. Carreon in the ER, 3:35 PM, 02/08/2018. Thank you for the opportunity to participate in this patient's care.
[2018-02-08 15:44] LABS: Basophils # (Auto) 0.1 K/mm3 (0.0-0.1); Basophils % (Auto) 0.5 % (0.0-1.8); Eosinophils # (Auto) 0.3 K/mm3 (0.0-0.4); Eosinophils % (Auto) 1.9 % (0.0-4.3); Hematocrit 47.1 % (35.5-45.6); Hemoglobin 15.5 gm/dl (11.8-15.2); Lymphocytes # (Auto) 3.1 K/mm3 (1.2-5.4); Lymphocytes % (Auto) 17.6 % (13.4-35.0); Mean Corpuscular HGB Conc 33 % (32-34); Mean Corpuscular Hemoglobin 30 pg (28-32); Mean Corpuscular Volume 90 fl (84-94); Monocytes # (Auto) 1.1 K/mm3 (0.0-0.8); Monocytes % (Auto) 6.1 % (0.0-7.3); Platelet Count 212 K/mm3 (140-440); Red Blood Count 5.23 M/mm3 (3.65-5.03); Red Cell Distribution Width 14.1 % (13.2-15.2)
[2018-02-08 15:54] LABS: INR 0.98 (0.87-1.13)
[2018-02-08 16:02] LABS: BUN/Creatinine Ratio 13; Blood Urea Nitrogen 9 mg/dL (9-20); Calcium 8.3 mg/dL (8.4-10.2); Hemolysis Index 24
[2018-02-08] MEDS ORDERED: ACTIVASE IV ONE ×2 (16:44)
[2018-02-08] MEDS ORDERED: ACTIVASE ONE (16:44)
[2018-02-08] MEDS ORDERED: NACL 0.9% IV ONE (16:44)
[2018-02-08] MEDS ORDERED: NACL 0.9% 100 ML ONE (16:45)
--- NOTE | 2018-02-08 16:56 | History and Physical Report ---
History of Present Illness Chief complaint: I had a stroke History of present illness: 57 YO Male with HTN, Obesity, Nicotine Dependence presents to ED for evaluation. Pt states that he has experienced acute onset Right facial droop, Right sided weakness. Pt states tht his symptoms began 30 minutes prior to EMS notification. EMS notified and upon arrival, the patient was found to have symptoms consistent with CVA. Code Stroke was called and patient was transported to [facility] for further care and evaluation. Pt seen and evaluated in ED and found to have have acute CVA. Neurology consulted in ED. Pt was treated with TPA and admitted to ICU. Pt family at bedside. No reports of fever, chills , CP, Palpitatons, NVD, Syncope, BRBPR, Unintentional weigh loss, night sweats, leg swelling, calf pain, or recent ill contacts. Past History Past Medical History: hypertension Past Surgical History: appendectomy, Other (Neck Fusion) Social history: smoking Family history: hypertension Medications and Allergies Allergies Allergy/AdvReac Type Severity Reaction Status Date / Time latex Allergy Unknown Verified 01/05/18 01:19 Home Medications Medication Instructions Recorded Confirmed Last Taken Type Besifloxacin HCl [Besivance 0.6%] 1 drop OP QID 01/05/18 02/08/18 Unknown History Difluprednate [Durezol 0.05%] 1 drop OP QID 01/05/18 02/08/18 Unknown History Hyoscyamine (Nf) [Hyoscyamine 0.125 mg PO Q4H PRN 01/05/18 02/08/18 Unknown History Sulfate (Nf)] Lisinopril/Hydrochlorothiazide 1 tab PO QDAY 01/05/18 02/08/18 Unknown History [Zestoretic 10-12.5 mg] Mirabegron [Myrbetriq] 50 mg PO QDAY 01/05/18 02/08/18 Unknown History Nepafenac [Ilevro 0.3%] 1 drop OP QDAY 01/05/18 02/08/18 Unknown History Oxycodone HCl [Roxicodone] 5 mg PO TID 01/05/18 02/08/18 Unknown History Potassium Chloride 10 meq PO QDAY 01/05/18 02/08/18 Unknown History Sildenafil Citrate [Viagra] 100 mg PO QDAY 01/05/18 02/08/18 Unknown History Zolpidem [Ambien] 5 mg PO QHS PRN 01/05/18 02/08/18 Unknown History Levofloxacin [Levaquin] 750 mg PO QDAY #7 tablet 01/07/18 02/08/18 Unknown Rx hydrALAZINE [Apresoline TAB] 10 mg PO Q8H #90 tablet 01/07/18 02/08/18 Unknown Rx Review of Systems Constitutional: no weight loss, no weight gain, no fever, no chills Ears, nose, mouth and throat: no ear pain, no ear discharge, no tinnitis, no decreased hearing, no nose pain, no nasal congestion Cardiovascular: no chest pain, no orthopnea, no palpitations, no rapid/ irregular heart beat, no edema, no syncope Respiratory: no cough, no cough with sputum, no excessive sputum, no hemoptysis , no shortness of breath Gastrointestinal: no nausea, no vomiting, no diarrhea, no constipation, no change in bowel habits Genitourinary Male: no hematuria, no flank pain, no discharge, no urinary frequency, no urinary hesitancy, no nocturia, no incontinence Rectal: no pain, no incontinence, no bleeding Musculoskeletal: no neck stiffness, no neck pain, no shooting arm pain, no arm numbness/tingling, no low back pain, no shooting leg pain, no leg numbness/ tingling Integumentary: no rash, no pruritis, no redness, no sores, no wounds, no jaundice Neurological: weakness, numbness, change in speech, gait dysfunction, no transient paralysis, no paralysis, no parathesias, no tingling, no seizures, no syncope, no headaches, no migraines Psychiatric: no anxiety, no memory loss, no change in sleep habits, no sleep disturbances, no insomnia, no hypersomnia, no change in appetite, no change in libido, no suicidal ideation Endocrine: no cold intolerance, no heat intolerance, no polyphagia, no excessive thirst, no polydipsia, no polyuria, no nocturia Hematologic/Lymphatic: no easy bruising, no easy bleeding, no lymphadenopathy, no lymphedema Allergic/Immunologic: no urticaria, no allergic rhinitis, no wheezing, no persistent infections, no anaphylaxis Exam - Constitutional Vitals: Temp Pulse Resp BP Pulse Ox 98 F 81 20 150/92 88 02/08/18 16:08 02/08/18 16:15 02/08/18 16:15 02/08/18 16:15 02/08/18 16:15 General appearance: Present: mild distress - EENT Eyes: Present: PERRL ENT: hearing intact, clear oral mucosa - Neck Neck: Present: supple, normal ROM - Respiratory Respiratory effort: normal Respiratory: bilateral: CTA - Cardiovascular Heart Sounds: Present: S1 & S2. Absent: rub, click - Extremities Extremities: pulses symmetrical, No edema Peripheral Pulses: within normal limits - Abdominal General gastrointestinal: Present: soft, non-tender, non-distended, normal bowel sounds Male genitourinary: Present: normal - Integumentary Integumentary: Present: clear, warm, dry - Musculoskeletal Musculoskeletal: right sided weakness - Psychiatric Psychiatric: appropriate mood/affect, intact judgment & insight - Neurologic Neurologic: CNII-XII intact, moves all extremities Results - Labs CBC & Chem 7: 02/08/18 15:35 02/08/18 15:35 Labs: Abnormal lab results 02/08/18 02/08/18 Range/Units 15:35 15:35 WBC 17.8 H (4.5-11.0) K/mm3 RBC 5.23 H (3.65-5.03) M/mm3 Hgb 15.5 H (11.8-15.2) gm/dl Hct 47.1 H (35.5-45.6) % [place] # 1.1 H (0.0-0.8) K/mm3 Seg Neutrophils % 73.9 H (40.0-70.0) % Seg Neutrophils # 13.2 H (1.8-7.7) K/mm3 Creatinine 0.7 L (0.8-1.5) mg/dL Calcium 8.3 L (8.4-10.2) mg/dL Assessment and Plan - Patient Problems (1) CVA (cerebral vascular accident) Current Visit: Yes Status: Acute Qualifiers: Precerebral and cerebral artery: middle cerebral artery Laterality of affected vessel: left Plan to address problem: Stroke Protocol: CT head, MRI Brain, MRA Brain, Echo, Carotid Doppler, TPA in ED , Admit to ICU, lipid panel, PT/OT/ Speech Therapy. The high probability of a clinically significant, sudden or life threatening deterioration of the [Neuro, respiratory, cardiac] system(s) required my full and direct attention, intervention and personal management. The aggregate critical care time was [65] minutes. This time is in addition to time spent performing reported procedures but includes the following: [x] Data Review and interpretation [x] Patient assessment and monitoring of vital signs [x] Documentation [x] Medication orders and management (2) Right hemiparesis Current Visit: Yes Status: Acute Plan to address problem: PT consulted, treat CVA (3) Nicotine dependence Current Visit: Yes Status: Acute Qualifiers: Substance use status: in withdrawal Plan to address problem: Supportive care, (4) SIRS (systemic inflammatory response syndrome) Current Visit: Yes Status: Acute Plan to address problem: IV antibiotics, urinalysis, Chest X ray, repeat CBC (5) DVT prophylaxis Current Visit: Yes Status: Acute
[2018-02-08] MEDS ORDERED: TYLENOL PO PRN (16:58)
[2018-02-08] MEDS ORDERED: ZOFRAN IV PRN (16:58)
[2018-02-08] MEDS ORDERED: DULCOLAX PR PRN (16:58)
[2018-02-08] MEDS ORDERED: MILK OF MAGNESIA PO PRN (16:58)
[2018-02-08] MEDS ORDERED: PHENERGAN PR PRN (16:58)
[2018-02-08] MEDS ORDERED: REGLAN PO PRN (16:58)
[2018-02-08] MEDS ORDERED: HYOSCYAMINE 0.125 MG PO PRN (19:11)
[2018-02-08] MEDS ORDERED: LEVSIN SL SL PRN (19:22)
--- NOTE | 2018-02-08 19:38 | XRay Report ---
FINAL REPORT PROCEDURE: XR CHEST 1V AP TECHNIQUE: Chest radiograph anteroposterior view. CPT 47632 HISTORY: dypsnea COMPARISON: 01/05/2018 FINDINGS: Heart: Normal. Mediastinum/Vessels: Normal. Lungs/Pleural space: Normal. Bony thorax: No acute osseous abnormality. Life support devices: None. IMPRESSION: No acute cardiopulmonary abnormality.
[2018-02-08 20:27] LABS: Bilirubin,Urine NEG (Negative); Blood,Urine MOD (Negative); Color,Urine Yellow (Yellow); Mucus,Urine FEW /HPF; Protein,Urine <15 mg/dL mg/dL (Negative)
[2018-02-08] MEDS: ROXICODONE PO SCH (20:30)
[2018-02-08] MEDS: APRESOLINE PO SCH (20:48)
[2018-02-08] MEDS ORDERED: BESIFLOXACIN HCL OP SCH (22:00)
[2018-02-08] MEDS ORDERED: DIFLUPREDNATE OP SCH (22:00)
[2018-02-08] MEDS: HABITROL TD SCH (23:00)
[2018-02-09] MEDS: AMBIEN PO PRN (02:00)
[2018-02-09 05:02] LABS: Chol/HDL Ratio 3.3 %
[2018-02-09] MEDS: APRESOLINE PO SCH ×3 (06:29→21:10)
--- NOTE | 2018-02-09 07:36 | Progress Note ---
Assessment and Plan Assessment and plan: 57 YO Male with HTN, Obesity, Nicotine Dependence presents to ED for evaluation. Pt states that he has experienced acute onset Right facial droop, Right sided weakness. for 30 minutes, he was not on aspirin, he was given tpa in the er. MR brain 1. A tiny acute/subacute nonhemorrhagic cortical infarct involving the left insula. 2. Nonspecific pontine central hyperintense signal on T2. 3. Mild sinusitis MRA head; Left MCA stenosis and decreased blood flow in left MCA distal branches. echo; preserved EF carorid dopplers; <50% STENOSIS BILATERALLY BY DOPPLER VELOCITIES. ANTEGRADE VERTEBRAL ARTERY FLOW BILATERALY. (1) CVA (cerebral vascular accident) sp TPA in ED LDL less than 70, no need for statin aspirin was added, BP control, control risk factors for secondary prevention The high probability of a clinically significant, sudden or life threatening deterioration of the [Neuro, respiratory, cardiac] system(s) required my full and direct attention, intervention and personal management. The aggregate critical care time was [65] minutes. This time is in addition to time spent performing reported procedures but includes the following: [x] Data Review and interpretation [x] Patient assessment and monitoring of vital signs [x] Documentation [x] Medication orders and management (2) Right hemiparesis now resolved, due to cva (3) Nicotine dependence was counseled (4) SIRS (systemic inflammatory response syndrome) not due to infection; no evidence of infection, UA and CXR reviewed (5) chronic urinary retention has indwelling suprapublic cath, leave in place Hospitalist Physical - Constitutional Vitals: Temp Pulse Resp BP Pulse Ox 98.7 F 82 18 153/98 97 02/09/18 04:00 02/09/18 06:30 02/09/18 06:30 02/09/18 06:30 02/09/18 06:30 General appearance: Present: mild distress - EENT Eyes: Present: PERRL ENT: hearing intact - Neck Neck: Present: supple - Respiratory Respiratory effort: normal Respiratory: bilateral: CTA - Cardiovascular Rhythm: regular Heart Sounds: Present: S1 & S2 - Extremities Extremities: no ischemia Peripheral Pulses: within normal limits - Abdominal General gastrointestinal: soft, non-tender, normal bowel sounds - Integumentary Integumentary: Present: clear, warm, dry - Psychiatric Psychiatric: appropriate mood/affect, intact judgment & insight - Neurologic Neurologic: CNII-XII intact, no focal deficits, moves all extremities Results - Labs CBC & Chem 7: 02/08/18 15:35 02/08/18 15:35 Labs: Laboratory Last Values WBC 17.8 K/mm3 (4.5-11.0) H 02/08/18 15:35 RBC 5.23 M/mm3 (3.65-5.03) H 02/08/18 15:35 Hgb 15.5 gm/dl (11.8-15.2) H 02/08/18 15:35 Hct 47.1 % (35.5-45.6) H 02/08/18 15:35 MCV 90 fl (84-94) 02/08/18 15:35 MCH 30 pg (28-32) 02/08/18 15:35 MCHC 33 % (32-34) 02/08/18 15:35 RDW 14.1 % (13.2-15.2) 02/08/18 15:35 Plt Count 212 K/mm3 (140-440) 02/08/18 15:35 Lymph % (Auto) 17.6 % (13.4-35.0) 02/08/18 15:35 [place] % (Auto) 6.1 % (0.0-7.3) 02/08/18 15:35 Eos % (Auto) 1.9 % (0.0-4.3) 02/08/18 15:35 Baso % (Auto) 0.5 % (0.0-1.8) 02/08/18 15:35 Lymph # 3.1 K/mm3 (1.2-5.4) 02/08/18 15:35 [place] # 1.1 K/mm3 (0.0-0.8) H 02/08/18 15:35 Eos # 0.3 K/mm3 (0.0-0.4) 02/08/18 15:35 Baso # 0.1 K/mm3 (0.0-0.1) 02/08/18 15:35 Seg Neutrophils % 73.9 % (40.0-70.0) H 02/08/18 15:35 Seg Neutrophils # 13.2 K/mm3 (1.8-7.7) H 02/08/18 15:35 PT 13.5 Sec. (12.2-14.9) 02/08/18 15:35 INR 0.98 (0.87-1.13) 02/08/18 15:35 APTT 27.0 Sec. (24.2-36.6) 02/08/18 15:35 Thrombin Time 17.7 Sec. (15.1-19.6) 02/08/18 15:35 Sodium 139 mmol/L (137-145) 02/08/18 15:35 Potassium 3.9 mmol/L (3.6-5.0) 02/08/18 15:35 Chloride 103.8 mmol/L (98-107) 02/08/18 15:35 Carbon Dioxide 24 mmol/L (22-30) 02/08/18 15:35 Anion Gap 15 mmol/L 02/08/18 15:35 BUN 9 mg/dL (9-20) 02/08/18 15:35 Creatinine 0.7 mg/dL (0.8-1.5) L 02/08/18 15:35 Estimated GFR > 60 ml/min 02/08/18 15:35 BUN/Creatinine Ratio 13 % 02/08/18 15:35 Glucose 89 mg/dL (75-100) 02/08/18 15:35 Calcium 8.3 mg/dL (8.4-10.2) L 02/08/18 15:35 Troponin T < 0.010 ng/mL (0.00-0.029) 02/08/18 15:35 Triglycerides 94 mg/dL (2-149) 02/09/18 03:45 Cholesterol 119 mg/dL (50-199) 02/09/18 03:45 LDL Cholesterol Direct 68 mg/dL (50-130) 02/09/18 03:45 HDL Cholesterol 36 mg/dL (40-59) L 02/09/18 03:45 Cholesterol/HDL Ratio 3.30 % 02/09/18 03:45 Urine Color Yellow (Yellow) 02/08/18 20:11 Urine Turbidity Clear (Clear) 02/08/18 20:11 Urine pH 5.0 (5.0-7.0) 02/08/18 20:11 Ur Specific [place] 1.010 (1.003-1.030) 02/08/18 20:11 Urine Protein <15 mg/dl mg/dL (Negative) 02/08/18 20:11 Urine Glucose (UA) Neg mg/dL (Negative) 02/08/18 20:11 Urine Ketones Neg mg/dL (Negative) 02/08/18 20:11 Urine Blood Mod (Negative) 02/08/18 20:11 Urine Nitrite Neg (Negative) 02/08/18 20:11 Urine Bilirubin Neg (Negative) 02/08/18 20:11 Urine Urobilinogen 2.0 mg/dL (<2.0) 02/08/18 20:11 Ur Leukocyte Esterase Mod (Negative) 02/08/18 20:11 Urine WBC (Auto) 10.0 /HPF (0.0-6.0) H 02/08/18 20:11 Urine RBC (Auto) 4.0 /HPF (0.0-6.0) 02/08/18 20:11 Urine Mucus Few /HPF 02/08/18 20:11
[2018-02-09] MEDS ORDERED: NON-FORMULARY (Potassium Chloride [Potassium Chloride] 10 MEQ) PO SCH (10:00)
[2018-02-09] MEDS ORDERED: NON-FORMULARY (Mirabegron [Myrbetriq] 50 MG) PO SCH (10:00)
[2018-02-09] MEDS ORDERED: NON-FORMULARY (Lisinopril/Hydrochlorothiazide [Zestoretic 10-12.5 Mg] 1 TAB) PO SCH (10:00)
[2018-02-09] MEDS ORDERED: NEPAFENAC OP SCH (10:00)
--- NOTE | 2018-02-09 10:00 | Consultation ---
History of Present Illness Consult date: 02/09/18 Requesting physician: ALISA FITZGERALD Reason for consult: other (Acute CVA s/p TPA) Past History Past Medical History: hypertension Past Surgical History: appendectomy, Other (Neck Fusion) Social history: smoking Family history: hypertension Medications and Allergies Allergies Allergy/AdvReac Type Severity Reaction Status Date / Time latex Allergy Unknown Verified 01/05/18 01:19 Home Medications Medication Instructions Recorded Confirmed Last Taken Type Besifloxacin HCl [Besivance 0.6%] 1 drop OP QID 01/05/18 02/08/18 Unknown History Difluprednate [Durezol 0.05%] 1 drop OP QID 01/05/18 02/08/18 Unknown History Hyoscyamine (Nf) [Hyoscyamine 0.125 mg PO Q4H PRN 01/05/18 02/08/18 Unknown History Sulfate (Nf)] Lisinopril/Hydrochlorothiazide 1 tab PO QDAY 01/05/18 02/08/18 Unknown History [Zestoretic 10-12.5 mg] Mirabegron [Myrbetriq] 50 mg PO QDAY 01/05/18 02/08/18 Unknown History Nepafenac [Ilevro 0.3%] 1 drop OP QDAY 01/05/18 02/08/18 Unknown History Oxycodone HCl [Roxicodone] 5 mg PO TID 01/05/18 02/08/18 Unknown History Potassium Chloride 10 meq PO QDAY 01/05/18 02/08/18 Unknown History Sildenafil Citrate [Viagra] 100 mg PO QDAY 01/05/18 02/08/18 Unknown History Zolpidem [Ambien] 5 mg PO QHS PRN 01/05/18 02/08/18 Unknown History Levofloxacin [Levaquin] 750 mg PO QDAY #7 tablet 01/07/18 02/08/18 Unknown Rx hydrALAZINE [Apresoline TAB] 10 mg PO Q8H #90 tablet 01/07/18 02/08/18 Unknown Rx Active Meds: Active Medications Acetaminophen (Tylenol) 650 mg PO Q4H PRN PRN Reason: Pain, Mild (1-3) Aspirin (Aspirin) 325 mg PO QDAY SHARA Bisacodyl (Dulcolax) 10 mg NM QDAY PRN PRN Reason: Constipation Hydralazine HCl (Apresoline) 10 mg PO Q8HR [facility] Last Admin: 02/09/18 06:29 Dose: 10 mg Hydrochlorothiazide (Hctz) 12.5 mg PO QDAY [facility] Hyoscyamine (Levsin Sl) 0.125 mg SL Q4H PRN PRN Reason: GI CRAMPS Levofloxacin/Dextrose (Levaquin 750mg/150ml) 750 mg in 150 mls @ 100 mls/hr IV Q24HR [facility]; Protocol Lisinopril (Zestril) 10 mg PO QDAY [facility] Magnesium Hydroxide (Milk Of Magnesia) 30 ml PO Q4H PRN PRN Reason: Constipation Metoclopramide HCl (Reglan) 10 mg PO Q6H PRN PRN Reason: Nausea And Vomiting Miscellaneous Medication (Besifloxacin Hcl [Besivance 0.6%]) 1 drop OP QID [facility] Miscellaneous Medication (Difluprednate [Durezol 0.05%]) 1 drop OP QID [facility] Miscellaneous Medication (Mirabegron [Myrbetriq]) 50 mg PO QDAY [facility] Miscellaneous Medication (Nepafenac [Ilevro 0.3%]) 1 drop OP QDAY [facility] Nicotine (Habitrol) 21 mg TD QDAY [facility] Last Admin: 02/08/18 23:00 Dose: 21 mg Ondansetron HCl (Zofran) 4 mg IV Q8H PRN PRN Reason: N/V unrelieved by Reglan Oxycodone HCl (Roxicodone) 5 mg PO TID [facility] Last Admin: 02/08/18 20:30 Dose: 5 mg Potassium Chloride (K-Dur) 10 meq PO QDAY [facility] Promethazine HCl (Phenergan) 25 mg NM Q6H PRN PRN Reason: Nausea And Vomiting Sodium Chloride (Sodium Chloride Flush Syringe 10 Ml) 10 ml IV PRN PRN PRN Reason: LINE FLUSH Zolpidem Tartrate (Ambien) 5 mg PO QHS PRN PRN Reason: Sleep Last Admin: 02/09/18 02:00 Dose: 5 mg Physical Examination Vital signs: Vital Signs Pulse Resp BP Pulse Ox 74 18 150/93 92 02/08/18 15:46 02/08/18 15:46 02/08/18 15:46 02/08/18 15:46 Results - Laboratory Findings CBC and BMP: 02/08/18 15:35 02/08/18 15:35 PT/INR, D-dimer PT 13.5 Sec. (12.2-14.9) 02/08/18 15:35 INR 0.98 (0.87-1.13) 02/08/18 15:35 Abnormal lab findings: Abnormal Labs 02/08/18 02/08/18 02/08/18 15:35 15:35 20:11 WBC 17.8 H RBC 5.23 H Hgb 15.5 H Hct 47.1 H [place] # 1.1 H Seg Neutrophils % 73.9 H Seg Neutrophils # 13.2 H Creatinine 0.7 L Calcium 8.3 L HDL Cholesterol Urine WBC (Auto) 10.0 H 02/09/18 03:45 WBC RBC Hgb Hct [place] # Seg Neutrophils % Seg Neutrophils # Creatinine Calcium HDL Cholesterol 36 L Urine WBC (Auto) Assessment and Plan (1) CVA (cerebral vascular accident) Current Visit: Yes Status: Acute Qualifiers: Precerebral and cerebral artery: middle cerebral artery Laterality of affected vessel: left Plan to address problem: Stroke Protocol: CT head, MRI Brain, MRA Brain, Echo, Carotid Doppler, TPA in ED , Admit to ICU, lipid panel, PT/OT/ Speech Therapy. Monitor closely s/p TPA for bleeding Keep NPO for now, await Speech language pathologist evaluation Aspiration precautions Blood pressure control Secondary stroke prophylaxis Lifestyle modification (3)SIRS..possibly secondary to stroke [place] cultures, follow cultures Empriric antibiotics util culture results are available the de-escalate and adjust antibiotic therapy (3)Nicotine dependence/Tobacco abuse disorder -Smoking cessation counselling done at the bedside -Nicotine withdrawal precautions The high probability of a clinically significant, sudden or life threatening deterioration of the [Neuro, respiratory, cardiac] system(s) required my full and direct attention, intervention and personal management. The aggregate critical care time was [61] minutes. This time is in addition to time spent performing reported procedures but includes the following: [x] Data Review and interpretation [x] Patient assessment and monitoring of vital signs [x] Documentation [x] Medication orders and management
[2018-02-09] MEDS: HABITROL TD SCH (10:21)
[2018-02-09] MEDS: K-DUR PO SCH (10:21)
[2018-02-09] MEDS: ASPIRIN PO SCH (10:21)
[2018-02-09] MEDS: ROXICODONE PO SCH ×3 (10:21→20:01)
[2018-02-09] MEDS: LEVAQUIN 750MG/150ML 750 MG/150 ML BAG IV SCH ×2 (10:22→16:07)
--- NOTE | 2018-02-09 13:37 | Magnetic Resonance Report ---
MRI BRAIN WITHOUT CONTRAST: 02/08/18 16:58:00 CLINICAL: Stroke. TECHNIQUE: Axial diffusion, T1, T2, FLAIR, gradient echo T2*, and sagittal T1 sequences on a 1.5 Fina magnet. FINDINGS: A tiny focus of restricted diffusion involves the left insular cortex. There is corresponding T2 hyperintensity on FLAIR and T2. No other restricted diffusion. No mass or mass effect. No hemorrhage, edema or extra-axial collection. Normal pituitary and optic chiasm. Nonspecific central hyperintense T2 signal in the rell. The cerebellum is normal. Intact vascular flow voids. Mild left ethmoid and right sphenoid sinusitis. The orbits, and soft tissues are normal. Normal calvarium and skull base. IMPRESSION: 1. A tiny acute/subacute nonhemorrhagic cortical infarct involving the left insula. 2. Nonspecific pontine central hyperintense signal on T2. 3. Mild sinusitis.
--- NOTE | 2018-02-09 13:57 | Magnetic Resonance Report ---
MRA HEAD WITHOUT CONTRAST: 02/09/18 CLINICAL: Stroke. TECHNIQUE: Axial 3-D [id number] MR angiography of the [place] with review of axial source images. FINDINGS: Stenosis of the left MCA involving the distal M1 segment. The [place] is otherwise intact. No aneurysm and no occlusions. Slightly decreased blood flow in the distal left MCA branches. Symmetric blood flow in the anterior and posterior cerebral arteries. Normal basilar and vertebral arteries. The left vertebral artery is dominant. IMPRESSION: Left MCA stenosis and decreased blood flow in left MCA distal branches.
[2018-02-09] MEDS: HCTZ PO SCH (16:05)
[2018-02-09] MEDS: ZESTRIL PO SCH (16:05)
[2018-02-10] MEDS: AMBIEN PO PRN (00:14)
[2018-02-10] MEDS: APRESOLINE PO SCH ×3 (06:44→22:50)
[2018-02-10] MEDS: ROXICODONE PO SCH ×3 (07:58→22:50)
[2018-02-10] MEDS: ZESTRIL PO SCH (09:21)
[2018-02-10] MEDS: HCTZ PO SCH (09:21)
[2018-02-10] MEDS: HABITROL TD SCH (09:21)
[2018-02-10] MEDS: LEVAQUIN 750MG/150ML 750 MG/150 ML BAG IV SCH (09:22)
[2018-02-10] MEDS: K-DUR PO SCH (09:22)
[2018-02-10] MEDS: SODIUM CHLORIDE FLUSH SYRINGE 10 ML IV PRN (09:22)
[2018-02-10] MEDS: ASPIRIN PO SCH (09:23)
--- NOTE | 2018-02-10 09:28 | Progress Note ---
Assessment and Plan (1) CVA (cerebral vascular accident) Current Visit: Yes Status: Acute Qualifiers: Precerebral and cerebral artery: middle cerebral artery Laterality of affected vessel: left Aspiration precautions Blood pressure control Secondary stroke prophylaxis Lifestyle modification (2)SIRS..possibly secondary to stroke [place] cultures, follow cultures Empiric antibiotics util culture results are available the de-escalate and adjust antibiotic therapy (3)Nicotine dependence/Tobacco abuse disorder -Smoking cessation counselling done at the bedside -Nicotine withdrawal precautions (4) Morbid obesity Needs out patient sleep study Lifestyle modifications and weight loss discussed at the bedside (5) Post nasal drip syndrome -Intranasal corticosteroids Subjective Date of service: 02/10/18 Interval history: Seen and examined. Vitals, labs, medications, chart reviewed. s/p TPA no acute complication, no evidence of hemorrhagic conversion Denies any chest pain, no shortness of breath, no fevers or chills. No nausea or vomiting, no headaches, no diarrhea Objective Vital Signs - 12hr 02/09/18 02/09/18 02/09/18 21:30 21:40 21:50 Temperature Pulse Rate 86 78 82 Pulse Rate [ From Monitor] Respiratory 19 17 16 Rate Blood Pressure 150/89 150/89 150/89 Blood Pressure [Left] O2 Sat by Pulse 92 94 99 Oximetry 02/09/18 02/09/18 02/09/18 22:00 22:19 23:55 Temperature Pulse Rate 81 77 74 Pulse Rate [ From Monitor] Respiratory 21 Rate Blood Pressure 165/96 170/92 Blood Pressure 153/89 [Left] O2 Sat by Pulse 92 96 Oximetry 02/10/18 02/10/18 02/10/18 00:00 06:44 07:20 Temperature 98.6 F Pulse Rate 93 H 93 H Pulse Rate [ 74 From Monitor] Respiratory 16 22 Rate Blood Pressure 172/107 Blood Pressure [Left] O2 Sat by Pulse 95 Oximetry 02/10/18 02/10/18 07:43 09:21 Temperature 98.4 F Pulse Rate 90 99 H Pulse Rate [ From Monitor] Respiratory 20 Rate Blood Pressure 161/98 140/98 Blood Pressure [Left] O2 Sat by Pulse 93 Oximetry CBC and BMP: 02/08/18 15:35 02/08/18 15:35 ABG, PT/INR, D-dimer: PT/INR, D-dimer PT 13.5 Sec. (12.2-14.9) 02/08/18 15:35 INR 0.98 (0.87-1.13) 02/08/18 15:35 Abnormal lab findings: Abnormal Labs 02/08/18 02/08/18 02/08/18 15:35 15:35 20:11 WBC 17.8 H RBC 5.23 H Hgb 15.5 H Hct 47.1 H [place] # 1.1 H Seg Neutrophils % 73.9 H Seg Neutrophils # 13.2 H Creatinine 0.7 L Calcium 8.3 L HDL Cholesterol Urine WBC (Auto) 10.0 H 02/09/18 03:45 WBC RBC Hgb Hct [place] # Seg Neutrophils % Seg Neutrophils # Creatinine Calcium HDL Cholesterol 36 L Urine WBC (Auto)
[2018-02-10] MEDS: FLONASE NS SCH (14:58)
--- NOTE | 2018-02-10 17:41 | Progress Note ---
Assessment and Plan Assessment and plan: 57 YO Male with HTN, Obesity, Nicotine Dependence presents to ED for evaluation. Pt states that he has experienced acute onset Right facial droop, Right sided weakness. for 30 minutes, he was not on aspirin, he was given tpa in the er. MR brain 1. A tiny acute/subacute nonhemorrhagic cortical infarct involving the left insula. 2. Nonspecific pontine central hyperintense signal on T2. 3. Mild sinusitis MRA head; Left MCA stenosis and decreased blood flow in left MCA distal branches. echo; preserved EF carorid dopplers; <50% STENOSIS BILATERALLY BY DOPPLER VELOCITIES. ANTEGRADE VERTEBRAL ARTERY FLOW BILATERALY. (1) CVA (cerebral vascular accident) sp TPA in ED LDL less than 70, no need for statin aspirin was added, BP control, control risk factors for secondary prevention neurology consult placed (2) Right hemiparesis now resolved, due to cva (3) Nicotine dependence was counseled (4) SIRS (systemic inflammatory response syndrome) not due to infection; no evidence of infection, UA and CXR reviewed (5) chronic urinary retention has indwelling suprapublic cath, leave in place History Interval history: R side weakness has resolved no cp, no sob, no fever, no vomiting Hospitalist Physical - Physical exam Narrative exam: General appearance: Present: mild distress - EENT Eyes: Present: PERRL ENT: hearing intact - Neck Neck: Present: supple - Respiratory Respiratory effort: normal Respiratory: bilateral: CTA - Cardiovascular Rhythm: regular Heart Sounds: Present: S1 & S2 - Extremities Extremities: no ischemia Peripheral Pulses: within normal limits - Abdominal General gastrointestinal: soft, non-tender, normal bowel sounds - Integumentary Integumentary: Present: clear, warm, dry - Psychiatric Psychiatric: appropriate mood/affect, intact judgment & insight - Neurologic Neurologic: CNII-XII intact, no focal deficits, moves all extremities - Constitutional Vitals: Temp Pulse Resp BP Pulse Ox 97.8 F 77 20 145/84 94 02/10/18 14:50 02/10/18 14:50 02/10/18 14:58 02/10/18 14:57 02/10/18 14:50 General appearance: Present: mild distress Results - Labs CBC & Chem 7: 02/08/18 15:35 02/08/18 15:35 Labs: Laboratory Last Values WBC 17.8 K/mm3 (4.5-11.0) H 02/08/18 15:35 RBC 5.23 M/mm3 (3.65-5.03) H 02/08/18 15:35 Hgb 15.5 gm/dl (11.8-15.2) H 02/08/18 15:35 Hct 47.1 % (35.5-45.6) H 02/08/18 15:35 MCV 90 fl (84-94) 02/08/18 15:35 MCH 30 pg (28-32) 02/08/18 15:35 MCHC 33 % (32-34) 02/08/18 15:35 RDW 14.1 % (13.2-15.2) 02/08/18 15:35 Plt Count 212 K/mm3 (140-440) 02/08/18 15:35 Lymph % (Auto) 17.6 % (13.4-35.0) 02/08/18 15:35 [place] % (Auto) 6.1 % (0.0-7.3) 02/08/18 15:35 Eos % (Auto) 1.9 % (0.0-4.3) 02/08/18 15:35 Baso % (Auto) 0.5 % (0.0-1.8) 02/08/18 15:35 Lymph # 3.1 K/mm3 (1.2-5.4) 02/08/18 15:35 [place] # 1.1 K/mm3 (0.0-0.8) H 02/08/18 15:35 Eos # 0.3 K/mm3 (0.0-0.4) 02/08/18 15:35 Baso # 0.1 K/mm3 (0.0-0.1) 02/08/18 15:35 Seg Neutrophils % 73.9 % (40.0-70.0) H 02/08/18 15:35 Seg Neutrophils # 13.2 K/mm3 (1.8-7.7) H 02/08/18 15:35 PT 13.5 Sec. (12.2-14.9) 02/08/18 15:35 INR 0.98 (0.87-1.13) 02/08/18 15:35 APTT 27.0 Sec. (24.2-36.6) 02/08/18 15:35 Thrombin Time 17.7 Sec. (15.1-19.6) 02/08/18 15:35 Sodium 139 mmol/L (137-145) 02/08/18 15:35 Potassium 3.9 mmol/L (3.6-5.0) 02/08/18 15:35 Chloride 103.8 mmol/L (98-107) 02/08/18 15:35 Carbon Dioxide 24 mmol/L (22-30) 02/08/18 15:35 Anion Gap 15 mmol/L 02/08/18 15:35 BUN 9 mg/dL (9-20) 02/08/18 15:35 Creatinine 0.7 mg/dL (0.8-1.5) L 02/08/18 15:35 Estimated GFR > 60 ml/min 02/08/18 15:35 BUN/Creatinine Ratio 13 % 02/08/18 15:35 Glucose 89 mg/dL (75-100) 02/08/18 15:35 Calcium 8.3 mg/dL (8.4-10.2) L 02/08/18 15:35 Troponin T < 0.010 ng/mL (0.00-0.029) 02/08/18 15:35 Triglycerides 94 mg/dL (2-149) 02/09/18 03:45 Cholesterol 119 mg/dL (50-199) 02/09/18 03:45 LDL Cholesterol Direct 68 mg/dL (50-130) 02/09/18 03:45 HDL Cholesterol 36 mg/dL (40-59) L 02/09/18 03:45 Cholesterol/HDL Ratio 3.30 % 02/09/18 03:45 Urine Color Yellow (Yellow) 02/08/18 20:11 Urine Turbidity Clear (Clear) 02/08/18 20:11 Urine pH 5.0 (5.0-7.0) 02/08/18 20:11 Ur Specific [place] 1.010 (1.003-1.030) 02/08/18 20:11 Urine Protein <15 mg/dl mg/dL (Negative) 02/08/18 20:11 Urine Glucose (UA) Neg mg/dL (Negative) 02/08/18 20:11 Urine Ketones Neg mg/dL (Negative) 02/08/18 20:11 Urine Blood Mod (Negative) 02/08/18 20:11 Urine Nitrite Neg (Negative) 02/08/18 20:11 Urine Bilirubin Neg (Negative) 02/08/18 20:11 Urine Urobilinogen 2.0 mg/dL (<2.0) 02/08/18 20:11 Ur Leukocyte Esterase Mod (Negative) 02/08/18 20:11 Urine WBC (Auto) 10.0 /HPF (0.0-6.0) H 02/08/18 20:11 Urine RBC (Auto) 4.0 /HPF (0.0-6.0) 02/08/18 20:11 Urine Mucus Few /HPF 02/08/18 20:11
[2018-02-11] MEDS: APRESOLINE PO SCH ×3 (06:18→22:08)
[2018-02-11] MEDS: LEVAQUIN 750MG/150ML 750 MG/150 ML BAG IV SCH (09:28)
[2018-02-11] MEDS: ROXICODONE PO SCH ×3 (09:29→22:07)
[2018-02-11] MEDS: HABITROL TD SCH (09:29)
[2018-02-11] MEDS: K-DUR PO SCH (09:29)
[2018-02-11] MEDS: ASPIRIN PO SCH (09:29)
[2018-02-11] MEDS: ZESTRIL PO SCH (09:29)
[2018-02-11] MEDS: HCTZ PO SCH (09:30)
[2018-02-11] MEDS: FLONASE NS SCH (09:35)
[2018-02-11] MEDS: SODIUM CHLORIDE FLUSH SYRINGE 10 ML IV PRN (09:35)
--- NOTE | 2018-02-11 11:35 | Consultation ---
History of Present Illness Consult date: 02/11/18 Requesting physician: ALISA FITZGERALD Reason for Consult: Acute CVA. Chief complaint: Right side weak, slurry speech and right face drooping. History of present illness: 57 years old right handed male with HTN, Obesity, Nicotine Dependence presents to ED for right side weaker and slurry speech. HE was home and has experienced acute onset right facial droop, Right sided weakness. Pt states that his symptoms began 30 minutes prior to EMS notification. EMS notified and upon arrival, the patient was found to have symptoms consistent with CVA. Code Stroke was called and patient was transported to [facility] for further care and evaluation. Pt seen and evaluated in ED and found to have have acute CVA. Neurology consulted in ED. Pt was treated with TPA. He improved and brain MRI confirmed left insular acute/subacute isthmic infarct. Repeat imaging study didn't show any bleeding, then Aspirin is added. He didn't take aspirin at home. Neurology was consulted when he was in the ER. Now follow for post CVA and TPA. Past History Past Medical History: hypertension Past Surgical History: appendectomy, Other (Neck Fusion) Social history: smoking, alcohol abuse Family history: CAD, hypertension Medications and Allergies Allergies Allergy/AdvReac Type Severity Reaction Status Date / Time latex Allergy Unknown Verified 01/05/18 01:19 Home Medications Medication Instructions Recorded Confirmed Last Taken Type Besifloxacin HCl [Besivance 0.6%] 1 drop OP QID 01/05/18 02/08/18 Unknown History Difluprednate [Durezol 0.05%] 1 drop OP QID 01/05/18 02/08/18 Unknown History Hyoscyamine (Nf) [Hyoscyamine 0.125 mg PO Q4H PRN 01/05/18 02/08/18 Unknown History Sulfate (Nf)] Lisinopril/Hydrochlorothiazide 1 tab PO QDAY 01/05/18 02/08/18 Unknown History [Zestoretic 10-12.5 mg] Mirabegron [Myrbetriq] 50 mg PO QDAY 01/05/18 02/08/18 Unknown History Nepafenac [Ilevro 0.3%] 1 drop OP QDAY 01/05/18 02/08/18 Unknown History Oxycodone HCl [Roxicodone] 5 mg PO TID 01/05/18 02/08/18 Unknown History Potassium Chloride 10 meq PO QDAY 01/05/18 02/08/18 Unknown History Sildenafil Citrate [Viagra] 100 mg PO QDAY 01/05/18 02/08/18 Unknown History Zolpidem [Ambien] 5 mg PO QHS PRN 01/05/18 02/08/18 Unknown History Levofloxacin [Levaquin] 750 mg PO QDAY #7 tablet 01/07/18 02/08/18 Unknown Rx hydrALAZINE [Apresoline TAB] 10 mg PO Q8H #90 tablet 01/07/18 02/08/18 Unknown Rx Active Meds: Active Medications Acetaminophen (Tylenol) 650 mg PO Q4H PRN PRN Reason: Pain, Mild (1-3) Aspirin (Aspirin) 325 mg PO QDAY [facility] Last Admin: 02/11/18 09:29 Dose: 325 mg Bisacodyl (Dulcolax) 10 mg MA QDAY PRN PRN Reason: Constipation Fluticasone Propionate (Flonase) 100 mcg NS QDAY [facility] Last Admin: 02/11/18 09:35 Dose: 100 mcg Hydralazine HCl (Apresoline) 10 mg PO Q8HR [facility] Last Admin: 02/11/18 06:18 Dose: 10 mg Hydrochlorothiazide (Hctz) 12.5 mg PO QDAY [facility] Last Admin: 02/11/18 09:30 Dose: 12.5 mg Hyoscyamine (Levsin Sl) 0.125 mg SL Q4H PRN PRN Reason: GI CRAMPS Levofloxacin (Levaquin) 750 mg PO DAILY [facility] Stop: 02/18/18 09:59 Lisinopril (Zestril) 10 mg PO QDAY [facility] Last Admin: 02/11/18 09:29 Dose: 10 mg Magnesium Hydroxide (Milk Of Magnesia) 30 ml PO Q4H PRN PRN Reason: Constipation Metoclopramide HCl (Reglan) 10 mg PO Q6H PRN PRN Reason: Nausea And Vomiting Miscellaneous Medication (Besifloxacin Hcl [Besivance 0.6%]) 1 drop OP QID [facility] Miscellaneous Medication (Difluprednate [Durezol 0.05%]) 1 drop OP QID [facility] Miscellaneous Medication (Mirabegron [Myrbetriq]) 50 mg PO QDAY [facility] Miscellaneous Medication (Nepafenac [Ilevro 0.3%]) 1 drop OP QDAY [facility] Nicotine (Habitrol) 21 mg TD QDAY [facility] Last Admin: 02/11/18 09:29 Dose: 21 mg Ondansetron HCl (Zofran) 4 mg IV Q8H PRN PRN Reason: N/V unrelieved by Reglan Oxycodone HCl (Roxicodone) 5 mg PO TID [facility] Last Admin: 02/11/18 09:29 Dose: 5 mg Potassium Chloride (K-Dur) 10 meq PO QDAY [facility] Last Admin: 02/11/18 09:29 Dose: 10 meq Promethazine HCl (Phenergan) 25 mg MA Q6H PRN PRN Reason: Nausea And Vomiting Sodium Chloride (Sodium Chloride Flush Syringe 10 Ml) 10 ml IV PRN PRN PRN Reason: LINE FLUSH Last Admin: 02/11/18 09:35 Dose: 10 ml Zolpidem Tartrate (Ambien) 5 mg PO QHS PRN PRN Reason: Sleep Last Admin: 02/10/18 00:14 Dose: 5 mg Review of Systems All systems: negative (Right upper weakness, both leg weakness, R>L. Increased BMI. All other 10 points of systems are reviewed and negative.) Physical Examination - Vital Signs Vital Signs: Vital Signs Pulse Resp BP Pulse Ox 74 18 150/93 92 02/08/18 15:46 02/08/18 15:46 02/08/18 15:46 02/08/18 15:46 - Constitutional General appearance: comfortable - EENT EENT: Present: ATNC, PERRL - Respiratory Respiratory: Present: chest non-tender, lungs clear - Cardiovascular Cardiovascular: Present: regular rate, no murmurs Extremities: Present: no peripheral edema bilatateraly, no clubbing, cyanosis - Gastrointestinal Gastrointestinal: Present: normoactive bowel sounds, absent bowel sounds, soft - Integumentary Integumentary: Present: normal - Neurologic Cranial nerve examination: PERRL, EOMI Speech examination: intact Sensorimotor examination: intact Detailed motor examination: other (Right upper 4/5, right lower 3/5, left lower 4/5, left upper 5/5.) Detailed sensory examination: other (left leg sensation decreased.) Reflexes: 1+: ankle, bicep, knee, tricep - Psychiatric Psychiatric: Present: mood/affect appropriate - Assessment Assessment Interval: Baseline - Level of Consciousness 1a. Level of Consciousness: alert - LOC Questions 1b. LOC Questions: answers correctly - LOC Command 1c. LOC Commands: performs tasks correctly - Best Gaze 2. Best Gaze: normal - Visual 3. Visual: no visual loss - Motor Arm 5b. Motor Arm Right: drift - Motor Leg 6a. Motor Leg Left: drift - Limb Ataxia 7. Limb Ataxia: present 1 limb - Sensory 8. Sensory: mild/moderate sensory loss - Best Language 9. Best Language: no aphasia - Dysarthria 10. Dysarthria: mild/moderate dysarthria - Extinction and Inattention 11. Extinction/Inattention: no abnormality Results - Laboratory Findings CBC and BMP: 02/08/18 15:35 02/08/18 15:35 Abnormal Lab Findings: Abnormal Labs 02/08/18 02/08/18 02/08/18 15:35 15:35 20:11 WBC 17.8 H RBC 5.23 H Hgb 15.5 H Hct 47.1 H [place] # 1.1 H Seg Neutrophils % 73.9 H Seg Neutrophils # 13.2 H Creatinine 0.7 L Calcium 8.3 L HDL Cholesterol Urine WBC (Auto) 10.0 H 02/09/18 03:45 WBC RBC Hgb Hct [place] # Seg Neutrophils % Seg Neutrophils # Creatinine Calcium HDL Cholesterol 36 L Urine WBC (Auto) Assessment and Plan 1. Acute right side weaker, right low face weakness and dysarthric speech. S/P IV TPA. Brain MRI without contrast, acute/subacute left insular ischemical infarct. Improved. NIHSS 1. OT/PT, rehab and speech. 2. Secondary CVA. Continue Aspirin. 3. HTN. Controlled. Medicine. 4. Increased BMI. Exercise. 5. LDL and glucose normal range. 6. Pending carotid Doppler. 7. Echo, EF 55-60%, no PFO, vegetations, thrombus reported. Suggest [place]. 8. Infections. He is on antibiotics. 9. Plan discussed with him. 10. Will follow up with you. 11. If D/C, F/U with neurology in 4-6 weeks.
--- NOTE | 2018-02-11 15:16 | Progress Note ---
Assessment and Plan Acute CVA s/p tpA [place]AM[place] SIRS Tobacco Use Disorder Morbidly Obese UACS Leucocystosis (Explained risk of untreated LAMONT regarding complications related to CVA, CAD, CMOP etc and he agrees to give NIV a try) - deploy BIPA qhs - get baseline ABG - weight loss counselled - on antiplatelet and antilipid therapy - GI & VTE prophylaxis - flu & pneumovax per protocol ... improving ...35' Subjective Date of service: 02/11/18 Principal diagnosis: Acute CVA s/p tpA; Morbid Obesity; LAMONT Interval history: Patient seen today for: Acute CVA s/p tpA; Morbid Obesity; [place]AM[place] Seen and examined at bedside; 24 hour events reviewed; nursing and respiratory care staff consulted; no adverse overnight events reported to me; sitting in chair; no recussrent symptomspost tpA; denies acute chest pains or increased SOB ; admits to a h/o LAMONT but could not tolerate NIV well Objective Vital Signs - 12hr 02/11/18 02/11/18 02/11/18 03:33 04:48 06:18 Temperature 97.8 F 98.0 F Pulse Rate 84 90 100 H Respiratory 20 20 Rate Blood Pressure 166/109 172/100 Blood Pressure 175/100 [Left] O2 Sat by Pulse 100 93 Oximetry 02/11/18 02/11/18 02/11/18 07:19 08:17 12:10 Temperature 98.3 F 98.4 F Pulse Rate 100 H 79 Respiratory 16 20 Rate Blood Pressure 181/103 157/96 Blood Pressure [Left] O2 Sat by Pulse 95 97 94 Oximetry Constitutional: no acute distress, alert, other (obese) Eyes: non-icteric ENT: oropharynx moist, other (mallampatti 4) Neck: supple, no lymphadenopathy, no JVD, other (no thyromegaly) Effort: mildly labored Ascultation: Bilateral: clear, diminished breath sounds Percussion: Bilateral: not dull Cardiovascular: regular rate and rhythm, other (no R/M) Gastrointestinal: normoactive bowel sounds, absent bowel sounds, soft, non- tender, non-distended, other (No HSM) Integumentary: normal Extremities: no cyanosis, no edema, pink and warm, pulses normal Neurologic: normal mental status, non-focal exam (grossly), pupils equal and round, CN II-XII normal Psychiatric: mood appropriate CBC and BMP: 02/08/18 15:35 02/08/18 15:35 ABG, PT/INR, D-dimer: PT/INR, D-dimer PT 13.5 Sec. (12.2-14.9) 02/08/18 15:35 INR 0.98 (0.87-1.13) 02/08/18 15:35 Abnormal lab findings: Abnormal Labs 02/08/18 02/08/18 02/08/18 15:35 15:35 20:11 WBC 17.8 H RBC 5.23 H Hgb 15.5 H Hct 47.1 H [place] # 1.1 H Seg Neutrophils % 73.9 H Seg Neutrophils # 13.2 H Creatinine 0.7 L Calcium 8.3 L HDL Cholesterol Urine WBC (Auto) 10.0 H 02/09/18 03:45 WBC RBC Hgb Hct [place] # Seg Neutrophils % Seg Neutrophils # Creatinine Calcium HDL Cholesterol 36 L Urine WBC (Auto) Chest x-ray: image reviewed (RLL platelike atelectasis) Allied health notes reviewed: nursing
--- NOTE | 2018-02-11 15:23 | Progress Note ---
Assessment and Plan Assessment and Plan 1. Acute right side weaker, right low face weakness and dysarthric speech. S/P IV TPA. Brain MRI without contrast, acute/subacute left insular ischemical infarct. Improved. NIHSS 1. OT/PT, rehab and speech. 2. Secondary CVA. Continue Aspirin. 3. HTN. Controlled. Medicine. 4. Increased BMI. Exercise. 5. LDL and glucose normal range. 6. Pending carotid Doppler. 7. Echo, EF 55-60%, no PFO, vegetations, thrombus reported. Suggest [place]. 8. Infections. He is on antibiotics. 9. Plan discussed with him. 10. Will follow up with you. 11. If D/C, F/U with neurology in 4-6 weeks. Subjective Date of service: 02/11/18 Objective - Constitutional Vitals: Vital Signs - 12hr 02/11/18 02/11/18 02/11/18 03:33 04:48 06:18 Temperature 97.8 F 98.0 F Pulse Rate 84 90 100 H Respiratory 20 20 Rate Blood Pressure 166/109 172/100 Blood Pressure 175/100 [Left] O2 Sat by Pulse 100 93 Oximetry 02/11/18 02/11/18 02/11/18 07:19 08:17 12:10 Temperature 98.3 F 98.4 F Pulse Rate 100 H 79 Respiratory 16 20 Rate Blood Pressure 181/103 157/96 Blood Pressure [Left] O2 Sat by Pulse 95 97 94 Oximetry 02/11/18 15:10 Temperature 98.1 F Pulse Rate 80 Respiratory 16 Rate Blood Pressure 142/83 Blood Pressure [Left] O2 Sat by Pulse 93 Oximetry - Labs CBC & Chem 7: 02/08/18 15:35 02/08/18 15:35
[2018-02-12] MEDS: ROXICODONE PO SCH (08:42)
[2018-02-12] MEDS ORDERED: LEVAQUIN PO SCH (10:00)
[2018-02-12] MEDS: ZESTRIL PO SCH (10:23)
[2018-02-12] MEDS: HCTZ PO SCH (10:23)
[2018-02-12] MEDS: HABITROL TD SCH (10:23)
[2018-02-12] MEDS: ASPIRIN PO SCH (10:23)
[2018-02-12] MEDS: SODIUM CHLORIDE FLUSH SYRINGE 10 ML IV PRN (10:24)
[2018-02-12] MEDS: K-DUR PO SCH (10:24)
[2018-02-12] MEDS: FLONASE NS SCH (10:25)
--- NOTE | 2018-02-12 10:38 | Progress Note ---
Assessment and Plan 1. Acute right side weaker, right low face weakness and dysarthric speech. S/P IV TPA. Brain MRI without contrast, acute/subacute left insular ischemical infarct. Improved. NIHSS 1. OT/PT, rehab and speech. DVT prophylaxis. 2. Secondary CVA prevention. Continue Aspirin. 3. HTN. Controlled. Medicine. 4. Increased BMI. Exercise. 5. LDL and glucose normal range. 6. Carotid Doppler, < 50% stenosis. 7. Echo, EF 55-60%, no PFO, vegetations, thrombus reported. Suggest [place]. 8. Infections. He is on antibiotics. 9. Quit smoking. 10. Plan discussed with him. 11. Will follow up with you PRN. 12. If D/C, F/U with neurology in 4-6 weeks. Subjective Date of service: 02/12/18 Principal diagnosis: CVA. Interval history: No new neurological complaints. Objective - Vital Sign Vital Signs - 12hr 02/12/18 02/12/18 04:15 07:37 Temperature 98.0 F 98.3 F Pulse Rate 102 H 96 H Respiratory 19 20 Rate Blood Pressure 151/102 144/96 O2 Sat by Pulse 92 96 Oximetry - General Apperance Constitutional: comfortable - EENT EENT: PERRL - Respiratory Respiratory: lungs clear, normal breath sounds - Cardiovascular Cardiovascular: regular rate, no murmurs Extremities: no peripheral edema bilat, no clubbing, cyanosis - Gastrointestinal Gastrointestinal: normoactive bowel sounds, soft, non-tender - Integumentary Integumentary: normal - Neurologic Cranial nerve examination: EOMI, intact Speech examination: intact Detailed motor examination: other (Right upper 3/5, left upper 5/5, both leg 4/ 5. ) Detailed sensory examination: other (Left side decreased sensation.) Reflexes: 1+: ankle, bicep, knee, tricep - Laboratory Findings CBC and BMP: 02/08/18 15:35 02/08/18 15:35 Abnormal Lab Findings: Abnormal Labs 02/08/18 02/08/18 02/08/18 15:35 15:35 20:11 WBC 17.8 H RBC 5.23 H Hgb 15.5 H Hct 47.1 H [place] # 1.1 H Seg Neutrophils % 73.9 H Seg Neutrophils # 13.2 H Creatinine 0.7 L Calcium 8.3 L HDL Cholesterol Urine WBC (Auto) 10.0 H 02/09/18 03:45 WBC RBC Hgb Hct [place] # Seg Neutrophils % Seg Neutrophils # Creatinine Calcium HDL Cholesterol 36 L Urine WBC (Auto)
--- NOTE | 2018-02-12 14:47 | Discharge Summary ---
Providers - Providers Date of Admission: 02/08/18 16:58 Date of discharge: 02/12/18 Attending physician: REJI BEE 02/08/18 15:39 Speech Therapy Evaluation and Treat [CONS] Routine Reason For Exam: lethargic 02/08/18 16:58 Occupational Therapy Evaluate and Treat [CONS] Routine Comment: Reason For Exam: Neuro deficits Physical Therapy Evaluation and Treat [CONS] Routine Comment: Reason For Exam: Neuro deficits 02/08/18 20:10 Consult to Physician [CONS] Routine Comment: Consulting Provider: RAHUL OCHOA Physician Instructions: Reason For Exam: CCU 02/10/18 16:47 Consult to Physician [CONS] Routine Comment: Consulting Provider: FLACO LEUNG Physician Instructions: Reason For Exam: cva Primary care physician: [facility] Hospitalization Condition: Critical Hospital course: Assessment and Plan 1. Acute right side weaker, right low face weakness and dysarthric speech. S/P IV TPA. Brain MRI without contrast, acute/subacute left insular ischemical infarct. Improved. NIHSS 1. OT/PT, rehab and speech. DVT prophylaxis. 2. Secondary CVA prevention. Continue Aspirin. 3. HTN. Controlled. Medicine. 4. Increased BMI. Exercise. 5. LDL and glucose normal range. 6. Carotid Doppler, < 50% stenosis. 7. Echo, EF 55-60%, no PFO, vegetations. 8. Infections. He is on antibiotics. 9. Quit smoking. 10. Plan discussed with him. 11. Will follow up with PCP 12. F/U with neurology in 4-6 weeks. Disposition: - TO HOME OR SELFCARE Core Measure Documentation - Palliative Care Palliative Care/ Comfort Measures: Not Applicable - Core Measures Any of the following diagnoses?: none Exam - Constitutional Vitals: Temp Pulse Resp BP Pulse Ox 98.3 F 96 H 20 144/96 96 02/12/18 07:37 02/12/18 07:37 02/12/18 07:37 02/12/18 07:37 02/12/18 07:37 General appearance: Present: no acute distress, well-nourished - EENT Eyes: Present: PERRL ENT: hearing intact, clear oral mucosa - Neck Neck: Present: supple, normal ROM - Respiratory Respiratory effort: normal Respiratory: bilateral: CTA - Cardiovascular Heart rate: 78 Rhythm: regular Heart Sounds: Present: S1 & S2. Absent: rub, click - Extremities Extremities: no ischemia, pulses intact, pulses symmetrical, No edema Peripheral Pulses: within normal limits - Abdominal General gastrointestinal: Present: soft, non-tender, non-distended, normal bowel sounds, other (Suprapubic catheter) Male genitourinary: Present: normal - Rectal Rectal Exam: deferred - Integumentary Integumentary: Present: clear, warm, dry - Musculoskeletal Musculoskeletal: gait normal, strength equal bilaterally - Psychiatric Psychiatric: appropriate mood/affect, intact judgment & insight - Neurologic Neurologic: CNII-XII intact, moves all extremities - Allied Health Allied health notes reviewed: nursing, case management Plan Activity: no restrictions Weight Bearing Status: Full Weight Bearing Diet: low fat, low cholesterol, low salt Durable Medical Equipment Needed Upon Discharge: Cane Follow up with: PRIMARY CARE, [Primary Care Provider] - 3-5 Days DEANGELO BYRNE MD [Staff Physician] - 7 Days
[2018-02-12 16:52] VITALS: BP 162/99
== END 2018-02-12 18:30 | disposition home or self-care (01) | DRG 62 ==
LOC: ED 15:11 → CC1 16:58 → 3A 02-09 23:26
PROVIDERS: ADMIT Internal Medicine; ATTEND Internal Medicine
PROC: 3E03317 Introduction of Other Thrombolytic into Peripheral Vein, Percutaneous Approach (ICD-10-PCS; 2018-02-08)
PROC: 4A033R1 Measurement of Arterial Saturation, Peripheral, Percutaneous Approach (ICD-10-PCS; principal; 2018-02-12)
DX: I63.512 Cerebral infarction due to unspecified occlusion or stenosis of left middle cerebral artery (principal); G81.91 Hemiplegia, unspecified affecting right dominant side; R65.10 Systemic inflammatory response syndrome (SIRS) of non-infectious origin without acute organ dysfunction; E66.01 Morbid (severe) obesity due to excess calories; I10 Essential (primary) hypertension; F17.200 Nicotine dependence, unspecified, uncomplicated; E66.9 Obesity, unspecified; R09.82 Postnasal drip; G47.33 Obstructive sleep apnea (adult) (pediatric); R29.701 NIHSS score 1; Z90.49 Acquired absence of other specified parts of digestive tract; Z82.49 Family history of ischemic heart disease and other diseases of the circulatory system; Z68.37 Body mass index [BMI] 37.0-37.9, adult; Z91.040 Latex allergy status; Z71.6 Tobacco abuse counseling
CPT/HCPCS: 36415; 36600; 70450; 70544; 70551; 71045; 80048; 80061; 81001; 82803; 84484; 85025; 85610; 85670; 85730; 93005; 93010; 93306; 93880; 94760; 96374; 99291; 99406; G8978-GP; G8979-GP; G8980-GP; G8987-GO; G8988-GO; G8989-GO; J1956; J2997

== ENCOUNTER 2018-04-06 10:34 | Emergency (ER) | payer MEDICARE ==
[2018-04-06] MEDS ORDERED: NACL 0.9% IR ONE (11:53)
[2018-04-06] MEDS ORDERED: XYLOCAINE 1% 20 mL INFILTRATI ONE (11:54)
--- NOTE | 2018-04-06 11:55 | Emergency Department Report ---
ED General Adult HPI - General Chief complaint: Head Injury Stated complaint: FALL Time Seen by Provider: 04/06/18 11:39 Source: patient, family, EMS (ems notes not available at time of chart dictation), RN notes reviewed, old records reviewed Mode of arrival: Stretcher Limitations: Physical Limitation - History of Present Illness Initial comments: This is a 57-year-old male. The patient is unknown to this provider previously. Past medical history includes stroke, obesity, suprapubic Fuller catheter. Her mobility at baseline. Presents to the ER after mechanical fall from his wheelchair. Reports having up-to-date with tetanus vaccinations, complains of left-sided frontal headache and skin contusion, left posterior ankle skin laceration. Pain is sharp, increases with palpation, range of motion , decreases with rest. Denies new or different extremity weakness, numbness, chest pain, shortness of breath, denies new or different urinary symptoms, and denies midline neck pain. -: Sudden Location: head, left, lower extremity Quality: aching Consistency: intermittent Improves with: rest Worsens with: movement Associated Symptoms: headaches, rash, other (lacerations, Skin contusion). denies: confusion, chest pain, cough, diaphoresis, fever/chills, loss of appetite, malaise, nausea/vomiting, shortness of breath, syncope - Related Data Home Medications Medication Instructions Recorded Confirmed Last Taken Besifloxacin HCl [Besivance 0.6%] 1 drop OP QID 01/05/18 02/08/18 Unknown Difluprednate [Durezol 0.05%] 1 drop OP QID 01/05/18 02/08/18 Unknown Nepafenac [Ilevro 0.3%] 1 drop OP QDAY 01/05/18 02/08/18 Unknown Sildenafil Citrate [Viagra] 100 mg PO QDAY 01/05/18 02/08/18 Unknown Previous Rx's Medication Instructions Recorded Last Taken Type Levofloxacin [Levaquin] 750 mg PO QDAY #7 tablet 01/07/18 Unknown Rx Clopidogrel Bisulfate [Plavix] 75 mg PO QDAY #30 tablet 02/12/18 Unknown Rx Hyoscyamine (Nf) [Hyoscyamine 0.125 mg PO Q4H PRN #60 tablet 02/12/18 Unknown Rx Sulfate (Nf)] Lisinopril/Hydrochlorothiazide 1 tab PO QDAY #30 tablet 02/12/18 Unknown Rx [Zestoretic 10-12.5 mg] Mirabegron [Myrbetriq] 50 mg PO QDAY #30 tab.er.24h 02/12/18 Unknown Rx Nepafenac [Ilevro 0.3%] 1 drop OP QDAY 02/12/18 Unknown Rx Nicotine [Habitrol] 21 mg TD QDAY #10 patch 02/12/18 Unknown Rx Potassium Chloride 10 meq PO QDAY #30 tablet.er 02/12/18 Unknown Rx Zolpidem [Ambien] 5 mg PO QHS PRN #30 tablet 02/12/18 Unknown Rx hydrALAZINE [Apresoline TAB] 10 mg PO Q8H #90 tablet 02/12/18 Unknown Rx oxyCODONE [Roxicodone TAB] 5 mg PO TID #20 tablet 02/12/18 Unknown Rx Acetaminophen [Tylenol Arthritis] 650 mg PO Q4HR PRN #30 tablet.er 04/06/18 Unknown Rx Bacitracin Zinc Oint [Antibiotic 1 applicatio TP BID #1 tube 04/06/18 Unknown Rx Oint] Cephalexin [Keflex] 500 mg PO BID #9 capsule 04/06/18 Unknown Rx Allergies Allergy/AdvReac Type Severity Reaction Status Date / Time latex Allergy Unknown Verified 01/05/18 01:19 ED Review of Systems ROS: Stated complaint: FALL Other details as noted in HPI Comment: All other systems reviewed and negative ED Past Medical Hx - Past Medical History Hx Hypertension: Yes Hx HIV: No Additional medical history: has fuller catheter. cervical spine injury in 1999 - Surgical History Hx Appendectomy: Yes Additional Surgical History: neck fusion - Social History Smoking Status: Current Every Day Smoker Substance Use Type: None - Medications Home Medications: Home Medications Medication Instructions Recorded Confirmed Last Taken Type Besifloxacin HCl [Besivance 0.6%] 1 drop OP QID 01/05/18 02/08/18 Unknown History Difluprednate [Durezol 0.05%] 1 drop OP QID 01/05/18 02/08/18 Unknown History Nepafenac [Ilevro 0.3%] 1 drop OP QDAY 01/05/18 02/08/18 Unknown History Sildenafil Citrate [Viagra] 100 mg PO QDAY 01/05/18 02/08/18 Unknown History Levofloxacin [Levaquin] 750 mg PO QDAY #7 tablet 01/07/18 02/08/18 Unknown Rx Clopidogrel Bisulfate [Plavix] 75 mg PO QDAY #30 tablet 02/12/18 Unknown Rx Hyoscyamine (Nf) [Hyoscyamine 0.125 mg PO Q4H PRN #60 tablet 02/12/18 Unknown Rx Sulfate (Nf)] Lisinopril/Hydrochlorothiazide 1 tab PO QDAY #30 tablet 02/12/18 Unknown Rx [Zestoretic 10-12.5 mg] Mirabegron [Myrbetriq] 50 mg PO QDAY #30 tab.er.24h 02/12/18 Unknown Rx Nepafenac [Ilevro 0.3%] 1 drop OP QDAY 02/12/18 Unknown Rx Nicotine [Habitrol] 21 mg TD QDAY #10 patch 02/12/18 Unknown Rx Potassium Chloride 10 meq PO QDAY #30 tablet.er 02/12/18 Unknown Rx Zolpidem [Ambien] 5 mg PO QHS PRN #30 tablet 02/12/18 Unknown Rx hydrALAZINE [Apresoline TAB] 10 mg PO Q8H #90 tablet 02/12/18 Unknown Rx oxyCODONE [Roxicodone TAB] 5 mg PO TID #20 tablet 02/12/18 Unknown Rx Acetaminophen [Tylenol Arthritis] 650 mg PO Q4HR PRN #30 tablet.er 04/06/18 Unknown Rx Bacitracin Zinc Oint [Antibiotic 1 applicatio TP BID #1 tube 04/06/18 Unknown Rx Oint] Cephalexin [Keflex] 500 mg PO BID #9 capsule 04/06/18 Unknown Rx ED Physical Exam - General Limitations: Physical Limitation General appearance: alert, in no apparent distress - Head Head exam: Present: normocephalic, other (left frontal hematoma skin abrasion is noted) - Eye Eye exam: Present: normal appearance, PERRL, EOMI, other (visual acuity intact to finger counting, color perception, reading at a close distance). Absent: nystagmus - ENT ENT exam: Present: normal exam, normal orophraynx, mucous membranes moist, TM's normal bilaterally (negative nasal septal hematoma. Negative hemotympanum.), normal external ear exam - Neck Neck exam: Present: normal inspection, full ROM. Absent: tenderness (no midline cervical spine tenderness or step-offs), meningismus - Respiratory Respiratory exam: Present: normal lung sounds bilaterally. Absent: respiratory distress, chest wall tenderness - Cardiovascular Cardiovascular Exam: Present: regular rate, normal rhythm, normal heart sounds. Absent: systolic murmur, diastolic murmur, rubs, gallop - GI/Abdominal GI/Abdominal exam: Present: soft, normal bowel sounds, other (suprapubic Fuller catheter noted, no redness, pus or streaking). Absent: distended, tenderness, guarding, rebound, rigid, pulsatile mass - Rectal Rectal exam: Present: deferred - Extremities Exam Extremities exam: Present: tenderness (there is a curvilinear left posterior ankle laceration with no obvious foreign body, approximately 7 cm.), normal capillary refill, other (there is no palpable cord. There is negative Homans sign.). Absent: calf tenderness - Back Exam Back exam: Present: normal inspection, tenderness. Absent: CVA tenderness (R), paraspinal tenderness, vertebral tenderness - Neurological Exam Neurological exam: Present: alert, oriented X3, CN II-XII intact, other (my normal and normalExtraocular movements intact. Tongue midline. No facial droop. Facial sensation intact to light touch in the V1, V2, V3 distribution bilaterally. 5 and 5 strength in 4 extremities.. Sensation is intact to light touch in 4 extremities.). Absent: motor sensory deficit - Psychiatric Psychiatric exam: Present: normal affect, normal mood - Skin Skin exam: Present: warm, other (left leg laceration) ED Course Vital Signs 04/06/18 11:03 Temperature 98.1 F Pulse Rate 98 H Respiratory 20 Rate Blood Pressure 135/87 O2 Sat by Pulse 96 Oximetry - Reevaluation(s) Reevaluation #1: 04/06/18 14:07 The left ankle laceration is irrigated with sterile saline and Betadine at adequate pressure. The wound is explored under bloodless field, and no obvious foreign bodies are noted. 9 interrupted 3-0 Ethilon sutures are placed with good cosmetic approximation. The patient tolerated the procedure adequately without obvious complication. - Laceration /Wound Repair Left Posterior Distal Leg Wound Location: lower extremity Wound Length (cm): 7 Wound's Depth, Shape: into muscle, irregular, contused tissue Wound Explored: clean Irrigated w/ Saline (ccs): 500 Betadine Prep?: Yes Anesthesia: 1% Lidocaine Volume Anesthetic (ccs): 10 Wound Debrided: minimal Wound Repaired With: sutures Suture Size/Type: 3:0 (Ethilon) Number of Sutures: 9 Layer Closure?: No Sterile Dressing Applied?: Yes ED Medical Decision Making - Lab Data Vital Signs 04/06/18 11:03 Temperature 98.1 F Pulse Rate 98 H Respiratory 20 Rate Blood Pressure 135/87 O2 Sat by Pulse 96 Oximetry - Radiology Data Radiology results: report reviewed, image reviewed Noncontrast CT scan of the brain is negative for acute disease. X-ray of the left ankle is negative for acute fracture and dislocation of foreign body. Soft tissue defect noted, consistent with ankle laceration - Medical Decision Making Differential diagnosis, including but not limited to: Intracranial injury, contusion, concussion, left ankle laceration Assessment and plan: 57-year-old male status post fall. No midline cervical spine pain or tenderness. Physical exam unremarkable with exception of left frontal or head contusion, and left ankle laceration. Chirinos test is functional and intact in the bilateral lower extremities.Patient is clinically sober at this time. The cervical spine is cleared through nexus and belgian c spine rule Laceration repaired, placed in a left posterior splint, he'll be started on prophylactic Keflex, instructed to follow up as an outpatient. Critical care attestation.: If time is entered above; I have spent that time in minutes in the direct care of this critically ill patient, excluding procedure time. ED Disposition Clinical Impression: Laceration of left ankle, Forehead contusion Disposition: TO HOME OR SELFCARE Is pt being admited?: No Does the pt Need Aspirin: No Condition: Stable Instructions: Suture Care (ED), Laceration (ED) Additional Instructions: Wash the forehead abrasion and ankle laceration at least twice a day with soap and water. Apply bacitracin to the wounds every 8-12 hours. Have the ankle laceration reinspected in 2-3 days by medical professional. Follow-up with an orthopedic surgeon within the next 7 days for the left ankle wound, to exclude an occult left Achilles tendon laceration. Take the pain medication, antibiotics as directed. Rest and avoid heavy lifting. Continue other outpatient medications. Return to the ER right away with you pain, worsened pain, migration of pain, fevers, chills, lethargy, irritability, projectile vomiting, change in mental status, confusion, inability to tolerate liquid feeds. Referrals: PRIMARY CARE, [Primary Care Provider] - 3-5 Days KALI APONTE MD [Staff Physician] - 3-5 Days
--- NOTE | 2018-04-06 12:28 | Cat Scan Report ---
CT HEAD WITHOUT CONTRAST INDICATION: Fall. COMPARISON: 02/08/2018. FINDINGS: Noncontrast head CT slightly limited due to patient's head/position, though again suggests normal ventricles and sulci without acute or recent infarct, hemorrhage, mass effect or midline shift. No abnormal extra-axial fluid collections. Posterior fossa structures and basilar cisterns appear within normal limits. Left cataract surgery. Mild right maxillary sinusitis is new. Ethmoid sinusitis appears improved. Slight right frontoethmoid sinus mucosal thickening. Clear remainder imaged paranasal sinuses and temporal bone air cells with mastoid tips not well pneumatized. Nasal septal deviation. Intact calvarium. Approximately 2 cm left frontal scalp swelling/hematoma as on axial image 36, series 2. Numerous missing teeth. Cervical spondylosis and posterior fusion hardware. CONCLUSION: No acute intracranial CT abnormality with new mild right maxillary sinusitis and left frontal scalp swelling/hematoma, as described. Thank you for the opportunity to participate in this patient's care.
--- NOTE | 2018-04-06 12:43 | XRay Report ---
LEFT ANKLE RADIOGRAPHS INDICATION: Laceration. Assess for foreign body. COMPARISON: None similar. FINDINGS: AP and lateral left ankle radiographs demonstrate intact mortise, malleoli and talar dome contour. Large dorsal calcaneal spur with a deep laceration suspected just above it, not entirely excluded involving the Achilles tendon. Small plantar calcaneal spur also noted. Slight dorsal mid foot degenerative spurring. Mild ankle soft tissue swelling medially may also be present. Demineralized bones. CONCLUSION: A deep laceration at the left heel posteriorly suspected just above the dorsal calcaneal spur, as detailed above in this patient with other findings, as above. Achilles tendon assessment also suggested. No radiopaque foreign body identified. Please correlate. Thank you for the opportunity to participate in this patient's care.
[2018-04-06] MEDS ORDERED: ANTIBIOTIC OINT TP SCH (13:00)
[2018-04-06 14:15] VITALS: BP 134/84
== END 2018-04-06 14:54 | disposition home or self-care (01) ==
LOC: ED 10:34
DX: S91.012A Laceration without foreign body, left ankle, initial encounter (principal); S00.83XA Contusion of other part of head, initial encounter; I10 Essential (primary) hypertension; F17.200 Nicotine dependence, unspecified, uncomplicated; Z91.040 Latex allergy status; W05.0XXA Fall from non-moving wheelchair, initial encounter; Y93.89 Activity, other specified; Y92.89 Other specified places as the place of occurrence of the external cause; Y99.8 Other external cause status
CPT/HCPCS: 70450; 99284

== ENCOUNTER 2019-09-13 09:39 | Emergency (ER) | payer MEDICARE ==
--- NOTE | 2019-09-13 10:45 | Emergency Department Report ---
ED General Adult HPI - General Chief complaint: Pain General Stated complaint: JAW PAIN Time Seen by Provider: 09/13/19 10:40 Source: patient, EMS Mode of arrival: Wheelchair Limitations: Physical Limitation - History of Present Illness Initial comments: 59-year-old -[place] male with a past medical history of CVA comes in for right jaw pain but jaw mask for 4 months. Patient states that he is having increased pain for the last 3 weeks. Patient reports he currently takes OxyContin for pain. Patient states he is followed by [facility]. Onset/Timin -: month(s) Location: face, neck Severity scale (0 -10): 8 Quality: stabbing, aching Consistency: constant Improves with: none Worsens with: none Associated Symptoms: denies other symptoms - Related Data Home Medications Medication Instructions Recorded Confirmed Last Taken Besifloxacin HCl [Besivance 0.6%] 1 drop OP QID 01/05/18 02/08/18 Unknown Difluprednate [Durezol 0.05%] 1 drop OP QID 01/05/18 02/08/18 Unknown Nepafenac [Ilevro 0.3%] 1 drop OP QDAY 01/05/18 02/08/18 Unknown Sildenafil Citrate [Viagra] 100 mg PO QDAY 01/05/18 02/08/18 Unknown Previous Rx's Medication Instructions Recorded Last Taken Type levoFLOXacin [Levaquin] 750 mg PO QDAY #7 tablet 01/07/18 Unknown Rx Clopidogrel Bisulfate [Plavix] 75 mg PO QDAY #30 tablet 02/12/18 Unknown Rx Hyoscyamine (Nf) [Hyoscyamine 0.125 mg PO Q4H PRN #60 tablet 02/12/18 Unknown Rx Sulfate (Nf)] Lisinopril/Hydrochlorothiazide 1 tab PO QDAY #30 tablet 02/12/18 Unknown Rx [Zestoretic 10-12.5 mg] Mirabegron [Myrbetriq] 50 mg PO QDAY #30 tab.er.24h 02/12/18 Unknown Rx Nepafenac [Ilevro 0.3%] 1 drop OP QDAY 02/12/18 Unknown Rx Nicotine [Habitrol] 21 mg TD QDAY #10 patch 02/12/18 Unknown Rx Potassium Chloride 10 meq PO QDAY #30 tablet.er 02/12/18 Unknown Rx Zolpidem [Ambien] 5 mg PO QHS PRN #30 tablet 02/12/18 Unknown Rx hydrALAZINE [Apresoline TAB] 10 mg PO Q8H #90 tablet 02/12/18 Unknown Rx Acetaminophen [Tylenol Arthritis] 650 mg PO Q4HR PRN #30 tablet.er 04/06/18 Unknown Rx Bacitracin Zinc Oint [Antibiotic 1 applicatio TP BID #1 tube 04/06/18 Unknown Rx Oint] Cephalexin [Keflex] 500 mg PO BID #9 capsule 04/06/18 Unknown Rx oxyCODONE [roxiCODONE] 5 mg PO TID #15 tablet 09/13/19 Unknown Rx Allergies Allergy/AdvReac Type Severity Reaction Status Date / Time latex Allergy Unknown Verified 01/05/18 01:19 ED Review of Systems ROS: Stated complaint: JAW PAIN Other details as noted in HPI Comment: All other systems reviewed and negative ED Past Medical Hx - Past Medical History Previous Medical History?: Yes Hx Hypertension: Yes Hx HIV: No Additional medical history: has fuller catheter. cervical spine injury in 1999, right jaw mass - Surgical History Past Surgical History?: Yes Hx Appendectomy: Yes Additional Surgical History: neck fusion - Social History Smoking Status: Current Every Day Smoker Substance Use Type: Alcohol, Marijuana, Prescribed - Medications Home Medications: Home Medications Medication Instructions Recorded Confirmed Last Taken Type Besifloxacin HCl [Besivance 0.6%] 1 drop OP QID 01/05/18 02/08/18 Unknown History Difluprednate [Durezol 0.05%] 1 drop OP QID 01/05/18 02/08/18 Unknown History Nepafenac [Ilevro 0.3%] 1 drop OP QDAY 01/05/18 02/08/18 Unknown History Sildenafil Citrate [Viagra] 100 mg PO QDAY 01/05/18 02/08/18 Unknown History levoFLOXacin [Levaquin] 750 mg PO QDAY #7 tablet 01/07/18 02/08/18 Unknown Rx Clopidogrel Bisulfate [Plavix] 75 mg PO QDAY #30 tablet 02/12/18 Unknown Rx Hyoscyamine (Nf) [Hyoscyamine 0.125 mg PO Q4H PRN #60 tablet 02/12/18 Unknown Rx Sulfate (Nf)] Lisinopril/Hydrochlorothiazide 1 tab PO QDAY #30 tablet 02/12/18 Unknown Rx [Zestoretic 10-12.5 mg] Mirabegron [Myrbetriq] 50 mg PO QDAY #30 tab.er.24h 02/12/18 Unknown Rx Nepafenac [Ilevro 0.3%] 1 drop OP QDAY 02/12/18 Unknown Rx Nicotine [Habitrol] 21 mg TD QDAY #10 patch 02/12/18 Unknown Rx Potassium Chloride 10 meq PO QDAY #30 tablet.er 02/12/18 Unknown Rx Zolpidem [Ambien] 5 mg PO QHS PRN #30 tablet 02/12/18 Unknown Rx hydrALAZINE [Apresoline TAB] 10 mg PO Q8H #90 tablet 02/12/18 Unknown Rx Acetaminophen [Tylenol Arthritis] 650 mg PO Q4HR PRN #30 tablet.er 04/06/18 Unknown Rx Bacitracin Zinc Oint [Antibiotic 1 applicatio TP BID #1 tube 04/06/18 Unknown Rx Oint] Cephalexin [Keflex] 500 mg PO BID #9 capsule 04/06/18 Unknown Rx oxyCODONE [roxiCODONE] 5 mg PO TID #15 tablet 09/13/19 Unknown Rx ED Physical Exam - General Limitations: Physical Limitation General appearance: alert, in no apparent distress, other (sleepy) - Eye Eye exam: Present: EOMI - ENT ENT exam: Present: mucous membranes moist - Expanded ENT Exam Expanded Throat exam: Positive: other (right side large mandible firm mass with tenderness to touch.) - Respiratory Respiratory exam: Present: normal lung sounds bilaterally. Absent: respiratory distress - Cardiovascular Cardiovascular Exam: Present: regular rate, normal rhythm. Absent: systolic murmur, diastolic murmur, rubs, gallop - Neurological Exam Neurological exam: Present: alert, oriented X3 ED Course Vital Signs 09/13/19 09/13/19 09:51 10:59 Temperature 98.4 F Pulse Rate 89 Respiratory 18 20 Rate Blood Pressure 130/85 O2 Sat by Pulse 95 Oximetry ED Medical Decision Making - Lab Data Result diagrams: 09/13/19 12:31 09/13/19 12:31 - Radiology Data Radiology results: report reviewed Patient: MATILDE GAR MR#: [id number] : 1960 Acct:[id number] Age/Sex: 59 / M ADM Date: 09/13/19 Loc: ED Attending Dr: Ordering Physician: KAREEN THRASHER Date of Service: 09/13/19 Procedure(s): CT neck w con Accession Number(s): [id number] cc: KAREEN THRASHER CT NECK WITH INTRAVENOUS CONTRAST AND MULTIPLANAR RECONSTRUCTION CLINICAL HISTORY: mass on right jaw/neck TECHNIQUE: 3.0 mm thick contiguous axial scans were obtained from the skull base down to the aortic arch during intravenous contrast administration. In addition to evaluation of axial source images sagittal and coronal multiplanar reconstructions were produced and reviewed for this report. COMPARISON: MRI brain 02/12/2018. FINDINGS: Multiple parotid gland masses are identified bilaterally. The largest of these is in the right parotid gland where a 6.2 x 5.0 x 4.5 cm mass is identified. This is located adjacent to the mandibular ramus. A second right parotid mass measuring about 2.6 x 3.4 x 1.8 cm is present immediately beneath the larger lesion. There is evidence of adjacent level 1B and level II lymphadenopathy. Evaluation of the left parotid gland is remarkable for the presence of smaller (less than 1.5 cm diameter) nodules in the superficial lobe of the left parotid gland. Differential diagnosis includes multifocal parotid neoplasm such as Warthin's tumor. Occasionally pleomorphic adenoma can be multifocal. Parotid malignancy (adenocarcinoma versus mucoid epidermoid carcinoma) must be considered in the differential diagnosis for these findings. Int raparotid lymph nodes and parotid metastasis are considered less likely. The parotid lesions have in creased in size since MRI brain 02/12/2018. The parotid masses were incompletely evaluated on the MRI brain study. Submandibular salivary glands have an unremarkable appearance. No abnormalities are seen along the course of the airway. Nasopharynx, oropharynx, hypopharynx, larynx and visualized portions of the subglottic airway all have an unremarkable appearance. No abnormalities are seen in evaluation of the oral cavity and tongue. The floor the mouth has a normal appearance. Evaluation of the nasal cavity reveals no abnormality. The paranasal sinuses are free from inflammatory mucosal disease. Evaluation of the orbits a reveals no abnormality. The thyroid gland is enlarged and heterogeneous in attenuation. Possibility of thyroid goiter should be considered. Further evaluation with thyroid ultrasound may be useful if clinically warranted. Evaluation of the cervical spine is remarkable for findings suggesting a diagnosis of diffuse idiopathic skeletal hyperostosis with confluent anterior osteophyte formation resulting in fusion across the C4-5, C5-6, C6-7 and C7-T1 levels. I Patient is status post cervical laminectomy and posterior instrumentation from C3 through C6. Solid bone union is seen along the facet joints from C2 through C6. Evaluation of the lung apices is remarkable for infiltrate versus scar in the superior segment of the right lower lobe. The visualized portions of the superior mediastinum have an unremarkable appearance. Enhancement of normal vascular structures is demonstrated. No areas of abnormal contrast enhancement are identified. IMPRESSION: 1. 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 These lesions have increased in size since MRI brain dated 02/12/2018. All CT imaging studies performed at this facility utilize dose modulation, iterative reconstruction or weight based dosing, if appropriate, to obtain the lowest achievable radiation dose. Signer Name: Kalia Beltran MD Signed: 09/13/2019 3:44 PM Workstation Name: [id number] Transcribed By: Dictated By: Kalia Beltran MD Electronically Authenticated By: Kalia Beltran MD Signed Date/Time: 09/13/19 1544 DD/ 1523 TD/TT: Critical care attestation.: If time is entered above; I have spent that time in minutes in the direct care of this critically ill patient, excluding procedure time. 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 I have spoken with [facility] and informed him of your diagnoses. It is very important for used to follow-up with the ear nose and throat/ scout. It's very important for you to follow-up which her primary care provider in the next few days. As well as stopped laryngology us in the next 2-3 days. Take pain medication as prescribed do not operate heavy machinery while taking oxycodone. Prescriptions: oxyCODONE [roxiCODONE] 5 mg PO TID #15 tablet Referrals: PRIMARY CARE, [Primary Care Provider] - 3-5 Days CECILLE GARCIA MD [Staff Physician] - 3-5 Days
[2019-09-13] MEDS ORDERED: ONDANSETRON 4 MG/2 ML INJ IV ONE (10:47)
[2019-09-13] MEDS ORDERED: MORPHINE 4 MG/1 ML INJ IV ONE (10:47)
[2019-09-13 13:03] LABS: Basophils # (Auto) 0.1 K/mm3 (0.0-0.1); Basophils % (Auto) 0.4 % (0.0-1.8); Eosinophils # (Auto) 0.2 K/mm3 (0.0-0.4); Hematocrit 48.2 % (35.5-45.6); Hemoglobin 16.1 gm/dl (11.8-15.2); Lymphocytes # (Auto) 1.8 K/mm3 (1.2-5.4); Lymphocytes % (Auto) 11.3 % (13.4-35.0); Mean Corpuscular HGB Conc 33 % (32-34); Mean Corpuscular Volume 92 fl (84-94); Monocytes # (Auto) 1.5 K/mm3 (0.0-0.8); Monocytes % (Auto) 9.6 % (0.0-7.3); Platelet Count 217 K/mm3 (140-440); Red Blood Count 5.27 M/mm3 (3.65-5.03); Red Cell Distribution Width 13.9 % (13.2-15.2)
[2019-09-13 13:40] LABS: Alanine Aminotransferase 10 units/L (7-56); Albumin 3.2 g/dL (3.9-5); BUN/Creatinine Ratio 10; Blood Urea Nitrogen 8 mg/dL (9-20); Calcium 8.7 mg/dL (8.4-10.2); Hemolysis Index 30
--- NOTE | 2019-09-13 15:48 | Cat Scan Report ---
CT NECK WITH INTRAVENOUS CONTRAST AND MULTIPLANAR RECONSTRUCTION CLINICAL HISTORY: mass on right jaw/neck TECHNIQUE: 3.0 mm thick contiguous axial scans were obtained from the skull base down to the aortic arch during intravenous contrast administration. In addition to evaluation of axial source images sagittal and co branden multiplanar reconstructions were produced and reviewed for this report. COMPARISON: MRI brain 02/12/2018. FINDINGS: Multiple parotid gland masses are identified bilaterally. The largest of these is in the right paroti d gland where a 6.2 x 5.0 x 4.5 cm mass is identified. This is located adjacent to the mandibular madalyn us. A second right parotid mass measuring about 2.6 x 3.4 x 1.8 cm is present immediately beneath the larger lesion. There is evidence of adjacent level 1B and level II lymphadenopathy. Evaluation of th e left parotid gland is remarkable for the presence of smaller (less than 1.5 cm diameter) nodules in the superficial lobe of the left parotid gland. Differential diagnosis includes multifocal parotid n eoplasm such as Warthin's tumor. Occasionally pleomorphic adenoma can be multifocal. Parotid malignan cy (adenocarcinoma versus mucoid epidermoid carcinoma) must be considered in the differential diagnos is for these findings. Intraparotid lymph nodes and parotid metastasis are considered less likely. Th e parotid lesions have increased in size since MRI brain 02/12/2018. The parotid masses were incomplet sara evaluated on the MRI brain study. Submandibular salivary glands have an unremarkable appearance. No abnormalities are seen along the course of the airway. Nasopharynx, oropharynx, hypopharynx, laryn x and visualized portions of the subglottic airway all have an unremarkable appearance. No abnormalities are seen in evaluation of the oral cavity and tongue. The floor the mouth has a norm al appearance. Evaluation of the nasal cavity reveals no abnormality. The paranasal sinuses are free from inflammato ry mucosal disease. Evaluation of the orbits a reveals no abnormality. The thyroid gland is enlarged and heterogeneous in attenuation. Possibility of thyroid goiter should be considered. Further evaluation with thyroid ultrasound may be useful if clinically warranted. Evaluation of the cervical spine is remarkable for findings suggesting a diagnosis of diffuse idiopat hic skeletal hyperostosis with confluent anterior osteophyte formation resulting in fusion across the C4-5, C5-6, C6-7 and C7-T1 levels. I Patient is status post cervical laminectomy and posterior instr umentation from C3 through C6. Solid bone union is seen along the facet joints from C2 through C6. Ev aluation of the lung apices is remarkable for infiltrate versus scar in the superior segment of the r ight lower lobe. The visualized portions of the superior mediastinum have an unremarkable appearance. Enhancement of normal vascular structures is demonstrated. No areas of abnormal contrast enhancement are identified. IMPRESSION: 1. 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 These le sions have increased in size since MRI brain dated 02/12/2018. All CT imaging studies performed at this facility utilize dose modulation, iterative reconstruction o r weight based dosing, if appropriate, to obtain the lowest achievable radiation dose. Signer Name: Kalia Beltran MD Signed: 09/13/2019 3:44 PM Workstation Name: [id number]
--- NOTE | 2019-09-13 15:51 | Cat Scan Report ---
CT MAXILLOFACIAL WITH INTRAVENOUS CONTRAST INDICATION / CLINICAL INFORMATION: mass on right jaw/neck. TECHNIQUE: All CT scans at this location are performed using CT dose reduction for ALARA by means of automated e xposure control. COMPARISON: CT neck with intravenous contrast. FINDINGS: Please refer to CT neck report for description of the patient's multiple parotid gland masses and ass ociated cervical lymphadenopathy. The images of the CT maxillofacial examination do not provide any additional information when compare d to CT neck which is dictated separately. IMPRESSION: 1. Multiple parotid gland masses. Please refer to CT neck report. Signer Name: Kalia Beltran MD Signed: 09/13/2019 3:47 PM Workstation Name: [id number]
--- NOTE | 2019-09-13 16:24 | Event Note ---
Face to Face: For this encounter I have reviewed the PA/SUPERVISOR SHOP documentation, treatment plan, medical decision making, and I had face to face time with this patient. I spoke with Dr. Florecita Bai fax . She agreed to contact Edith Miguelito' PCP. She asked me to fax the discharge summary and imaging report which I did.
[2019-09-13 16:46] VITALS: BP 147/81
== END 2019-09-13 16:45 | disposition home or self-care (01) ==
LOC: ED 09:39
DX: D36.7 Benign neoplasm of other specified sites (principal); D11.0 Benign neoplasm of parotid gland; F17.200 Nicotine dependence, unspecified, uncomplicated; F12.10 Cannabis abuse, uncomplicated; Z90.49 Acquired absence of other specified parts of digestive tract; I10 Essential (primary) hypertension; Z98.890 Other specified postprocedural states; Z79.899 Other long term (current) drug therapy; Z91.041 Radiographic dye allergy status
CPT/HCPCS: 36415; 70487; 70491; 80053; 85025; 96374; 96375; 99284; J2270; J2405; Q9967

== ENCOUNTER 2020-09-13 08:54 | Emergency (ER) | payer MEDICARE ==
[2020-09-13 09:16] VITALS: BP 128/86
--- NOTE | 2020-09-13 09:25 | Emergency Department Report ---
ED General Adult HPI - General Chief complaint: Wound/Laceration Stated complaint: FEEDING TUBE FELL OUT Time Seen by Provider: 09/13/20 09:16 Source: EMS Mode of arrival: Ambulatory Limitations: No Limitations - History of Present Illness Initial comments: Chief complaint: Dislodged feeding tube HPI: This is a 60-year-old male with history of CVA who presents with dislodged feeding tube. Patient was admitted to the ICU at [facility] for severe CVA 3 months ago. Required rehabilitation at LTAC facility. He has tracheostomy feeding tube Fuller catheter. While he was transitioning from wheelchair, feeding tube dislodged. He does not want the feeding tube to be replaced. For the past month he has been taking medication and food by mouth. He denies any pain. He came for evaluation to ensure that no damage was done. He denies any pain. Denies any bleeding. -: Sudden, This morning Location: abdomen Severity scale (0 -10): 1 Consistency: now resolved Improves with: none Worsens with: none Associated Symptoms: denies other symptoms Treatments Prior to Arrival: none - Related Data Home Medications Medication Instructions Recorded Confirmed Last Taken Besifloxacin HCl [Besivance 0.6%] 1 drop OP QID 01/05/18 02/08/18 Unknown Difluprednate [Durezol 0.05%] 1 drop OP QID 01/05/18 02/08/18 Unknown Nepafenac [Ilevro 0.3%] 1 drop OP QDAY 01/05/18 02/08/18 Unknown Sildenafil Citrate [Viagra] 100 mg PO QDAY 01/05/18 02/08/18 Unknown Previous Rx's Medication Instructions Recorded Last Taken Type levoFLOXacin [Levaquin] 750 mg PO QDAY #7 tablet 01/07/18 Unknown Rx Clopidogrel Bisulfate [Plavix] 75 mg PO QDAY #30 tablet 02/12/18 Unknown Rx Hyoscyamine (Nf) [Hyoscyamine 0.125 mg PO Q4H PRN #60 tablet 02/12/18 Unknown Rx Sulfate (Nf)] Lisinopril/Hydrochlorothiazide 1 tab PO QDAY #30 tablet 02/12/18 Unknown Rx [Zestoretic 10-12.5 mg] Mirabegron [Myrbetriq] 50 mg PO QDAY #30 tab.er.24h 02/12/18 Unknown Rx Nepafenac [Ilevro 0.3%] 1 drop OP QDAY 02/12/18 Unknown Rx Nicotine [Habitrol] 21 mg TD QDAY #10 patch 02/12/18 Unknown Rx Potassium Chloride 10 meq PO QDAY #30 tablet.er 02/12/18 Unknown Rx Zolpidem [Ambien] 5 mg PO QHS PRN #30 tablet 02/12/18 Unknown Rx hydrALAZINE [Apresoline TAB] 10 mg PO Q8H #90 tablet 02/12/18 Unknown Rx Acetaminophen [Tylenol Arthritis] 650 mg PO Q4HR PRN #30 tablet.er 04/06/18 Unknown Rx Bacitracin Zinc Oint [Antibiotic 1 applicatio TP BID #1 tube 04/06/18 Unknown Rx Oint] Cephalexin [Keflex] 500 mg PO BID #9 capsule 04/06/18 Unknown Rx oxyCODONE [roxiCODONE] 5 mg PO TID #15 tablet 09/13/19 Unknown Rx Allergies Allergy/AdvReac Type Severity Reaction Status Date / Time latex Allergy Unknown Verified 01/05/18 01:19 ED Review of Systems ROS: Stated complaint: FEEDING TUBE FELL OUT Other details as noted in HPI Comment: All other systems reviewed and negative Constitutional: denies: fever, malaise Respiratory: denies: cough, shortness of breath Cardiovascular: denies: chest pain ED Past Medical Hx - Past Medical History Previous Medical History?: Yes Hx Hypertension: Yes Hx CVA: Yes Hx HIV: No Additional medical history: has fuller catheter. cervical spine injury in 1999, right jaw mass - Surgical History Past Surgical History?: Yes Hx Appendectomy: Yes Additional Surgical History: neck fusion - Social History Smoking Status: Never Smoker - Medications Home Medications: Home Medications Medication Instructions Recorded Confirmed Last Taken Type Besifloxacin HCl [Besivance 0.6%] 1 drop OP QID 01/05/18 02/08/18 Unknown History Difluprednate [Durezol 0.05%] 1 drop OP QID 01/05/18 02/08/18 Unknown History Nepafenac [Ilevro 0.3%] 1 drop OP QDAY 01/05/18 02/08/18 Unknown History Sildenafil Citrate [Viagra] 100 mg PO QDAY 01/05/18 02/08/18 Unknown History levoFLOXacin [Levaquin] 750 mg PO QDAY #7 tablet 01/07/18 02/08/18 Unknown Rx Clopidogrel Bisulfate [Plavix] 75 mg PO QDAY #30 tablet 02/12/18 Unknown Rx Hyoscyamine (Nf) [Hyoscyamine 0.125 mg PO Q4H PRN #60 tablet 02/12/18 Unknown Rx Sulfate (Nf)] Lisinopril/Hydrochlorothiazide 1 tab PO QDAY #30 tablet 02/12/18 Unknown Rx [Zestoretic 10-12.5 mg] Mirabegron [Myrbetriq] 50 mg PO QDAY #30 tab.er.24h 02/12/18 Unknown Rx Nepafenac [Ilevro 0.3%] 1 drop OP QDAY 02/12/18 Unknown Rx Nicotine [Habitrol] 21 mg TD QDAY #10 patch 02/12/18 Unknown Rx Potassium Chloride 10 meq PO QDAY #30 tablet.er 02/12/18 Unknown Rx Zolpidem [Ambien] 5 mg PO QHS PRN #30 tablet 02/12/18 Unknown Rx hydrALAZINE [Apresoline TAB] 10 mg PO Q8H #90 tablet 02/12/18 Unknown Rx Acetaminophen [Tylenol Arthritis] 650 mg PO Q4HR PRN #30 tablet.er 04/06/18 Unknown Rx Bacitracin Zinc Oint [Antibiotic 1 applicatio TP BID #1 tube 04/06/18 Unknown Rx Oint] Cephalexin [Keflex] 500 mg PO BID #9 capsule 04/06/18 Unknown Rx oxyCODONE [roxiCODONE] 5 mg PO TID #15 tablet 09/13/19 Unknown Rx ED Physical Exam - General Limitations: No Limitations General appearance: alert, in no apparent distress, other (Pleasant talkative no acute distress, appears comfortable) - Head Head exam: Present: atraumatic, normocephalic - Eye Eye exam: Present: normal appearance - ENT ENT exam: Present: mucous membranes moist - Neck Neck exam: Present: normal inspection, other (Tracheostomy tube present intact no surrounding drainage) - Respiratory Respiratory exam: Present: normal lung sounds bilaterally. Absent: respiratory distress, wheezes, rales, rhonchi - Cardiovascular Cardiovascular Exam: Present: regular rate, normal rhythm, normal heart sounds. Absent: systolic murmur, diastolic murmur, rubs, gallop - GI/Abdominal GI/Abdominal exam: Present: soft, normal bowel sounds, other (Ostomy site: No bleeding no discharge no surrounding erythema, overlying bandage clean dry). Absent: distended, tenderness, guarding, rebound - Rectal Rectal exam: Present: deferred - Extremities Exam Extremities exam: Present: normal inspection - Neurological Exam Neurological exam: Present: alert, oriented X3 - Psychiatric Psychiatric exam: Present: normal affect, normal mood - Skin Skin exam: Present: warm, dry, intact, normal color. Absent: rash ED Course Vital Signs 09/13/20 09:11 Temperature 98.2 F Pulse Rate 89 Respiratory 18 Rate Blood Pressure 128/86 Blood Pressure 136/86 [Right] O2 Sat by Pulse 100 Oximetry ED Medical Decision Making - Medical Decision Making Discharge feeding tube: I examined the large tube at the bedside. I suspect that this was a jejunostomy tube. Patient does not have indication of perforation or bleeding. No evidence of peritonitis. Patient does not require feeding tube at this time. No indication for urgent replacement. Patient will be discharged home. He is followed at [facility]. Critical care attestation.: If time is entered above; I have spent that time in minutes in the direct care of this critically ill patient, excluding procedure time. ED Disposition Clinical Impression: Feeding tube dysfunction Disposition: DC-01 TO HOME OR SELFCARE Is pt being admited?: No Does the pt Need Aspirin: No Condition: Stable
--- NOTE | 2020-09-13 10:16 | XRay Report ---
RIGHT HAND 4 VIEWS INDICATION: Right hand injury, ring finger pain. COMPARISON: None. IMPRESSION: There is poor separation of the fingers which limits this exam. No acute osseous abnorm ality or bone lesion is appreciated. Mild diffuse degenerative changes are noted throughout the wrist and phalanges. The soft tissues are unremarkable. Signer Name: Ramón Davis Jr, MD Signed: 09/13/2020 10:12 AM Workstation Name: [id number]
== END 2020-09-13 11:10 | disposition home or self-care (01) ==
LOC: ED 08:54
DX: T85.518A Breakdown (mechanical) of other gastrointestinal prosthetic devices, implants and grafts, initial encounter (principal); I10 Essential (primary) hypertension; Z86.73 Personal history of transient ischemic attack (TIA), and cerebral infarction without residual deficits; Z90.49 Acquired absence of other specified parts of digestive tract; Z98.890 Other specified postprocedural states; Z79.899 Other long term (current) drug therapy; Z91.040 Latex allergy status; Y92.89 Other specified places as the place of occurrence of the external cause

== ENCOUNTER 2020-11-13 17:10 | Emergency (ER) | payer MEDICARE, OTHER ==
[2020-11-13 17:22] VITALS: BP 115/68
--- NOTE | 2020-11-13 17:33 | Emergency Department Report ---
ED Medical Clearance HPI - General Chief complaint: Medical Clearance Stated complaint: TUBE CAME OUT OF CHEST Time Seen by Provider: 11/13/20 17:25 Source: patient Mode of arrival: Wheelchair (Electric wheelchair) - History of Present Illness Initial comments: 60-year-old -[place] male presents to the emergency room stating that his trachea came out and not sure when it happened. Patient reports he had a trach placed secondary to a CVA 3 to 4 months ago. Patient does not know his doctor. Patient has a past medical history of hypertension currently takes his medication as prescribed. He has a Fuller catheter has had a cervical spine injury in 1999, right jaw mass had his appendix taken out no confusion or trachea. Patient denies any difficulty breathing. Home medications: Home Medications Medication Instructions Recorded Confirmed Last Taken Besifloxacin HCl [Besivance 0.6%] 1 drop OP QID 01/05/18 02/08/18 Unknown Difluprednate [Durezol 0.05%] 1 drop OP QID 01/05/18 02/08/18 Unknown Nepafenac [Ilevro 0.3%] 1 drop OP QDAY 01/05/18 02/08/18 Unknown Sildenafil Citrate [Viagra] 100 mg PO QDAY 01/05/18 02/08/18 Unknown Previous Rx's Medication Instructions Recorded Last Taken Type levoFLOXacin [Levaquin] 750 mg PO QDAY #7 tablet 01/07/18 Unknown Rx Clopidogrel Bisulfate [Plavix] 75 mg PO QDAY #30 tablet 02/12/18 Unknown Rx Hyoscyamine (Nf) [Hyoscyamine 0.125 mg PO Q4H PRN #60 tablet 02/12/18 Unknown Rx Sulfate (Nf)] Lisinopril/Hydrochlorothiazide 1 tab PO QDAY #30 tablet 02/12/18 Unknown Rx [Zestoretic 10-12.5 mg] Mirabegron [Myrbetriq] 50 mg PO QDAY #30 tab.er.24h 02/12/18 Unknown Rx Nepafenac [Ilevro 0.3%] 1 drop OP QDAY 02/12/18 Unknown Rx Nicotine [Habitrol] 21 mg TD QDAY #10 patch 02/12/18 Unknown Rx Potassium Chloride 10 meq PO QDAY #30 tablet.er 02/12/18 Unknown Rx Zolpidem [Ambien] 5 mg PO QHS PRN #30 tablet 02/12/18 Unknown Rx hydrALAZINE [Apresoline TAB] 10 mg PO Q8H #90 tablet 02/12/18 Unknown Rx Acetaminophen [Tylenol Arthritis] 650 mg PO Q4HR PRN #30 tablet.er 04/06/18 Unknown Rx Bacitracin Zinc Oint [Antibiotic 1 applicatio TP BID #1 tube 04/06/18 Unknown Rx Oint] cephALEXin [Keflex] 500 mg PO BID #9 capsule 04/06/18 Unknown Rx oxyCODONE [roxiCODONE] 5 mg PO TID #15 tablet 09/13/19 Unknown Rx Allergies/Adverse reactions: Allergies Allergy/AdvReac Type Severity Reaction Status Date / Time latex Allergy Unknown Verified 01/05/18 01:19 ED Review of Systems ROS: Stated complaint: TUBE CAME OUT OF CHEST Other details as noted in HPI ED Past Medical Hx - Past Medical History Previous Medical History?: Yes Hx Hypertension: Yes Hx CVA: Yes Hx HIV: No Additional medical history: has fuller catheter. cervical spine injury in 1999, right jaw mass - Surgical History Past Surgical History?: Yes Hx Appendectomy: Yes Additional Surgical History: neck fusion. trache - Social History Smoking Status: Current Every Day Smoker - Medications Home Medications: Home Medications Medication Instructions Recorded Confirmed Last Taken Type Besifloxacin HCl [Besivance 0.6%] 1 drop OP QID 01/05/18 02/08/18 Unknown History Difluprednate [Durezol 0.05%] 1 drop OP QID 01/05/18 02/08/18 Unknown History Nepafenac [Ilevro 0.3%] 1 drop OP QDAY 01/05/18 02/08/18 Unknown History Sildenafil Citrate [Viagra] 100 mg PO QDAY 01/05/18 02/08/18 Unknown History levoFLOXacin [Levaquin] 750 mg PO QDAY #7 tablet 01/07/18 02/08/18 Unknown Rx Clopidogrel Bisulfate [Plavix] 75 mg PO QDAY #30 tablet 02/12/18 Unknown Rx Hyoscyamine (Nf) [Hyoscyamine 0.125 mg PO Q4H PRN #60 tablet 02/12/18 Unknown Rx Sulfate (Nf)] Lisinopril/Hydrochlorothiazide 1 tab PO QDAY #30 tablet 02/12/18 Unknown Rx [Zestoretic 10-12.5 mg] Mirabegron [Myrbetriq] 50 mg PO QDAY #30 tab.er.24h 02/12/18 Unknown Rx Nepafenac [Ilevro 0.3%] 1 drop OP QDAY 02/12/18 Unknown Rx Nicotine [Habitrol] 21 mg TD QDAY #10 patch 02/12/18 Unknown Rx Potassium Chloride 10 meq PO QDAY #30 tablet.er 02/12/18 Unknown Rx Zolpidem [Ambien] 5 mg PO QHS PRN #30 tablet 02/12/18 Unknown Rx hydrALAZINE [Apresoline TAB] 10 mg PO Q8H #90 tablet 02/12/18 Unknown Rx Acetaminophen [Tylenol Arthritis] 650 mg PO Q4HR PRN #30 tablet.er 04/06/18 Unknown Rx Bacitracin Zinc Oint [Antibiotic 1 applicatio TP BID #1 tube 04/06/18 Unknown Rx Oint] cephALEXin [Keflex] 500 mg PO BID #9 capsule 04/06/18 Unknown Rx oxyCODONE [roxiCODONE] 5 mg PO TID #15 tablet 09/13/19 Unknown Rx ED Physical Exam - General Limitations: No Limitations General appearance: alert, in no apparent distress - Head Head exam: Present: atraumatic, normocephalic - Eye Eye exam: Present: normal appearance - ENT ENT exam: Present: mucous membranes moist - Neck Neck exam: Present: full ROM, other (Stoma partially closed). Absent: tenderness - Respiratory Respiratory exam: Present: normal lung sounds bilaterally. Absent: respiratory distress - Cardiovascular Cardiovascular Exam: Present: regular rate, normal rhythm. Absent: systolic murmur, diastolic murmur, rubs, gallop - Neurological Exam Neurological exam: Present: alert, oriented X3 - Psychiatric Psychiatric exam: Present: normal affect, normal mood - Skin Skin exam: Present: warm, dry, intact, normal color. Absent: rash ED Course Vital Signs 11/13/20 17:14 Temperature 97.6 F Pulse Rate 75 Respiratory 18 Rate Blood Pressure 115/68 O2 Sat by Pulse 98 Oximetry ED Medical Decision Making - Medical Decision Making 60-year-old -[place] male presents to the emergency room stating that his trachea came out and not sure when it happened. Patient reports he had a trach placed secondary to a CVA 3 to 4 months ago. Patient does not know his doctor. Patient has a past medical history of hypertension currently takes his medication as prescribed. He has a Fuller catheter has had a cervical spine injury in 1999, right jaw mass had his appendix taken out no confusion or trachea. Patient denies any difficulty breathing. Respiratory was called to see if he was able to reinsert trachea to [place] respiratory therapist. He reports that he is not able to reinsert as he feels a hole has starting to close up. Patient has been satting at 98% on room air with no respiratory distress. Patient is able to talk in complete sentences without any difficulties. Discussed with patient he needs to follow-up with his respiratory/field sales executive. Patient reports he feels like he does not need it. ED Disposition Clinical Impression: Trachea displaced Disposition: DC-01 TO HOME OR SELFCARE Is pt being admited?: No Does the pt Need Aspirin: No Condition: Stable Additional Instructions: Very important for you to follow-up with your field sales executive/surgeon to be reassessed for the necessity of needing a trach. Please return back to the emergency room if you start to have any shortness of breath. Referrals: Your, field sales executive [Other] - 3-5 Days LORENZA SMITH MD [Staff Physician] - 3-5 Days
== END 2020-11-13 18:29 | disposition home or self-care (01) ==
LOC: ED 17:10
DX: J39.8 Other specified diseases of upper respiratory tract (principal); I10 Essential (primary) hypertension; F17.200 Nicotine dependence, unspecified, uncomplicated; Z91.040 Latex allergy status; Z79.899 Other long term (current) drug therapy; Z86.73 Personal history of transient ischemic attack (TIA), and cerebral infarction without residual deficits; Z98.890 Other specified postprocedural states; Z90.49 Acquired absence of other specified parts of digestive tract
CPT/HCPCS: 99282

== ENCOUNTER 2020-11-15 11:42 | Emergency (ER) | payer OTHER ==
[2020-11-15 12:04] VITALS: BP 126/76
--- NOTE | 2020-11-16 00:22 | Emergency Department Report ---
HPI - General Chief Complaint: Medical Clearance Time Seen by Provider: 11/16/20 00:12 - HPI HPI: Room 32 The patient is a 60-year-old male present with a chief complaint of dislodged trach tube. The patient states 3 days ago his trach tube came out. Patient states she came to the ED and they were unable to replace with another trach tube. The patient was doing well so he was discharged home. The patient states his believes there is still a piece of the trach tube that went into the stoma. Patient denies complaints stating he feels fine. The patient states he came to the emergency department to see if there was a piece of the trach tube still inside of him. ED Past Medical Hx - Past Medical History Previous Medical History?: Yes Hx Hypertension: Yes Hx CVA: Yes Hx HIV: No Additional medical history: has fuller catheter. cervical spine injury in 1999, right jaw mass - Surgical History Past Surgical History?: Yes Hx Appendectomy: Yes Additional Surgical History: neck fusion. trache - Family History Family history: no significant - Social History Smoking Status: Current Every Day Smoker (1 pack/day) Substance Use Type: None - Medications Home Medications: Home Medications Medication Instructions Recorded Confirmed Last Taken Type Besifloxacin HCl [Besivance 0.6%] 1 drop OP QID 01/05/18 02/08/18 Unknown History Difluprednate [Durezol 0.05%] 1 drop OP QID 01/05/18 02/08/18 Unknown History Nepafenac [Ilevro 0.3%] 1 drop OP QDAY 01/05/18 02/08/18 Unknown History Sildenafil Citrate [Viagra] 100 mg PO QDAY 01/05/18 02/08/18 Unknown History levoFLOXacin [Levaquin] 750 mg PO QDAY #7 tablet 01/07/18 02/08/18 Unknown Rx Clopidogrel Bisulfate [Plavix] 75 mg PO QDAY #30 tablet 02/12/18 Unknown Rx Hyoscyamine (Nf) [Hyoscyamine 0.125 mg PO Q4H PRN #60 tablet 02/12/18 Unknown Rx Sulfate (Nf)] Lisinopril/Hydrochlorothiazide 1 tab PO QDAY #30 tablet 02/12/18 Unknown Rx [Zestoretic 10-12.5 mg] Mirabegron [Myrbetriq] 50 mg PO QDAY #30 tab.er.24h 02/12/18 Unknown Rx Nepafenac [Ilevro 0.3%] 1 drop OP QDAY 02/12/18 Unknown Rx Nicotine [Habitrol] 21 mg TD QDAY #10 patch 02/12/18 Unknown Rx Potassium Chloride 10 meq PO QDAY #30 tablet.er 02/12/18 Unknown Rx Zolpidem [Ambien] 5 mg PO QHS PRN #30 tablet 02/12/18 Unknown Rx hydrALAZINE [Apresoline TAB] 10 mg PO Q8H #90 tablet 02/12/18 Unknown Rx Acetaminophen [Tylenol Arthritis] 650 mg PO Q4HR PRN #30 tablet.er 04/06/18 Unknown Rx Bacitracin Zinc Oint [Antibiotic 1 applicatio TP BID #1 tube 04/06/18 Unknown Rx Oint] cephALEXin [Keflex] 500 mg PO BID #9 capsule 04/06/18 Unknown Rx oxyCODONE [roxiCODONE] 5 mg PO TID #15 tablet 09/13/19 Unknown Rx ED Review of Systems ROS: Stated complaint: TUBE IN NECK CAME OUT Other details as noted in HPI Constitutional: no symptoms reported ENT: denies: throat pain Respiratory: no symptoms reported Cardiovascular: denies: chest pain Endocrine: no symptoms reported Gastrointestinal: denies: abdominal pain Genitourinary: denies: dysuria Musculoskeletal: denies: back pain Neurological: denies: headache Physical Exam - Physical Exam Vital Signs: Vital Signs 11/15/20 12:03 Temperature 98.1 F Pulse Rate 76 Respiratory 16 Rate Blood Pressure 126/76 [Right] O2 Sat by Pulse 98 Oximetry Physical Exam: GENERAL: The patient is well-developed well-nourished male sitting in wheelchair not appearing to be in acute distress. [] HEENT: Normocephalic. Atraumatic. Extraocular motions are intact. Patient has moist mucous membranes. NECK: Supple. Stoma present with minimal opening. No drainage appreciated. No stridor CHEST/LUNGS: Clear to auscultation. There is no respiratory distress noted. HEART/CARDIOVASCULAR: Regular. There is no tachycardia. There is no gallop rub or murmur. ABDOMEN: Abdomen is soft, nontender. Patient has normal bowel sounds. SKIN: There is no rash. There is no edema. There is no diaphoresis. NEURO: The patient is awake, alert, and oriented. The patient is cooperative. MUSCULOSKELETAL: There is no evidence of acute injury. ED Course Vital Signs 11/15/20 12:03 Temperature 98.1 F Pulse Rate 76 Respiratory 16 Rate Blood Pressure 126/76 [Right] O2 Sat by Pulse 98 Oximetry ED Medical Decision Making - Radiology Data Radiology results: report reviewed (Lateral soft tissue neck x-ray, chest x-ray ), image reviewed (Lateral soft tissue neck x-ray, chest x-ray) interpreted by me: Lateral soft tissue neck x-ray-no trach tube seen. Cervical hardware in place. Chest x-ray-no trach tube seen. No focal infiltrates. No pneumothorax [address] [address] XRay Report Signed Patient: MATILDE GAR MR#: [id number] : 1960 Acct:[id number] Age/Sex: 60 / M ADM Date: 11/15/20 Loc: ED Attending Dr: Ordering Physician: CELIA NATH MD Date of Service: 11/16/20 Procedure(s): XR neck soft tissue Accession Number(s): [id number] cc: CELIA NATH MD Fluoro Time In Minutes: Soft tissues of the neck 2 views INDICATION: Patient concern tracheostomy tube fell into stoma. Evaluate for foreign body. FINDINGS: Postoperative changes are noted in the cervical spine with changes of posterior fusion noted. There are surgical annie in the right neck. Tracheostomy tube is not seen. Aside from surgical hardware and clips no radiopaque foreign bodies are seen. Signer Name: Charlie Pruitt MD Signed: 11/16/2020 1:14 AM Workstation Name: [id number] Transcribed By: SS Dictated By: Charlie Pruitt MD Electronically Authenticated By: Charlie Pruitt MD Signed Date/Time: 11/16/20113 DD/ 1 TD/TT: [address] [address] XRay Report Signed Patient: MATILDE GAR MR#: [id number] : 1960 Acct:[id number] Age/Sex: 60 / M ADM Date: 11/15/20 Loc: ED Attending Dr: Ordering Physician: CELIA NATH MD Date of Service: 11/16/20 Procedure(s): XR chest 1V ap Accession Number(s): [id number] cc: CELIA NATH MD Fluoro Time In Minutes: CHEST 1 VIEW 11/15/2020 11:46 PM INDICATION / CLINICAL INFORMATION: Pt concerned trach tube fell into stoma r/o fb. COMPARISON: 02/08/2018 FINDINGS: SUPPORT DEVICES: None. HEART / MEDIASTINUM: No significant abnormality. LUNGS / PLEURA: No significant pulmonary or pleural abnormality. No pneumothorax. ADDITIONAL FINDINGS: No tracheostomy tube is seen. No radiopaque foreign bodies are seen. IMPRESSION: 1. No acute findings. Signer Name: Charlie Pruitt MD Signed: 11/16/2020 1:12 AM Workstation Name: [id number] Transcribed By: SS Dictated By: Charlie Pruitt MD Electronically Authenticated By: Charlie Pruitt MD Signed Date/Time: 11/16/20111 DD/ 0 TD/TT: - Differential Diagnosis Rule out foreign body Critical care attestation.: If time is entered above; I have spent that time in minutes in the direct care of this critically ill patient, excluding procedure time. ED Disposition Clinical Impression: Encounter for observation for suspected aspirated (inhaled) foreign body ruled out Disposition: DC-01 TO HOME OR SELFCARE Is pt being admited?: No Does the pt Need Aspirin: No Condition: Stable Additional Instructions: Return to the emergency department should you develop worsening symptoms, inability to tolerate food or liquids, high fever or any other concerns Referrals: PRIMARY CARE, [Primary Care Provider] - 3-5 Days Time of Disposition:
--- NOTE | 2020-11-16 01:16 | XRay Report ---
CHEST 1 VIEW 11/15/2020 11:46 PM INDICATION / CLINICAL INFORMATION: Pt concerned trach tube fell into stoma r/o fb. COMPARISON: 02/08/2018 FINDINGS: SUPPORT DEVICES: None. HEART / MEDIASTINUM: No significant abnormality. LUNGS / PLEURA: No significant pulmonary or pleural abnormality. No pneumothorax. ADDITIONAL FINDINGS: No tracheostomy tube is seen. No radiopaque foreign bodies are seen. IMPRESSION: 1. No acute findings. Signer Name: Charlie Pruitt MD Signed: 11/16/2020 1:12 AM Workstation Name: [id number]
--- NOTE | 2020-11-16 01:18 | XRay Report ---
Soft tissues of the neck 2 views INDICATION: Patient concern tracheostomy tube fell into stoma. Evaluate for foreign body. FINDINGS: Postoperative changes are noted in the cervical spine with changes of posterior fusion note d. There are surgical annie in the right neck. Tracheostomy tube is not seen. Aside from surgical hardware and clips no radiopaque foreign bodies ar e seen. Signer Name: Charlie Pruitt MD Signed: 11/16/2020 1:14 AM Workstation Name: [id number]
== END 2020-11-16 01:31 | disposition home or self-care (01) ==
LOC: ED 11:42
DX: I10 Essential (primary) hypertension (principal); F17.200 Nicotine dependence, unspecified, uncomplicated; Z03.822 Encounter for observation for suspected aspirated (inhaled) foreign body ruled out; Z86.73 Personal history of transient ischemic attack (TIA), and cerebral infarction without residual deficits; Z90.49 Acquired absence of other specified parts of digestive tract; Z79.899 Other long term (current) drug therapy; Z91.040 Latex allergy status
CPT/HCPCS: 70360; 71045; 99283

== ENCOUNTER 2021-02-20 17:19 | Emergency (ER) | payer OTHER ==
[2021-02-20 17:57] VITALS: BP 138/85
--- NOTE | 2021-02-22 12:58 | Electrocardiograph Report ---
[facility] Test Date: 2021-02-20 Test Time: 18:03:47 Pat Name: MATILDE GAR Department: Room: Gender: M [employer]: DYLAN : 1960 Requested By: YAS MCCURDY Order Number: [id number] Reading MD: Latosha Cook Measurements Intervals [place] Rate: 82 P: 57 UT: 217 QRS: -36 QRSD: 71 T: 37 QT: 370 QTc: 431 Interpretive Statements Sinus rhythm Borderline prolonged UT interval Left atrial enlargement Left axis deviation No previous ECG available for comparison Electronically Signed On 02-22-2021 12:58:31 EDT by Latosha Cook
== END 2021-02-20 19:19 | disposition left against medical advice (07) ==
LOC: ED 17:19
DX: R07.9 Chest pain, unspecified (principal); Z53.21 Procedure and treatment not carried out due to patient leaving prior to being seen by health care provider
CPT/HCPCS: 93005